=== PATIENT | male | born 1945 | race Two or more races ===

== ENCOUNTER 2016-08-05 12:35 | Inpatient (IN) | payer OTHER ==
[2016-08-05] VITALS (7 sets, daily range): BP systolic 73–129; BP diastolic 39–71
[~2016-08-05] VITALS: Ht 170.2 cm; Wt 72.6 kg
[2016-08-05] MEDS ORDERED: Ampicillin/Sulbactam Sod 3 GM in NS 110 ML IV SCH (12:45)
[2016-08-05] MEDS ORDERED: NS 1000ml 2,200 ML IVLG ONE (12:45)
[2016-08-05] MEDS ORDERED: Unasyn 3gm Inj ONE (12:53)
[2016-08-05 13:17] LABS: BASOPHILS % (AUTO) 0.6 % (0.0-2.0); LYMPHOCYTES % (AUTO) 10.8 % (20.0-45.0); MEAN CORPUSCULAR HEMOGLOBIN 29.3 PG (27.0-31.0); MEAN CORPUSCULAR VOLUME 89 FL (80-99); MEAN PLATELET VOLUME 7.1 FL (6.5-10.1); MONOCYTES % (AUTO) 8.6 % (1.0-10.0); PLATELET COUNT 207 K/UL (150-450); RED BLOOD COUNT 4.11 M/UL (4.70-6.10); RED CELL DISTRIBUTION WIDTH 13.1 % (11.6-14.8)
[2016-08-05 13:31] LABS: APPEARANCE,URINE CLEAR; INR 1.1 (0.9-1.1); KETONES,URINE 2+ (NEGATIVE); LEUKOCYTE ESTERASE ,URINE NEGATIVE (NEGATIVE); NITRITE,URINE NEGATIVE (NEGATIVE); PH,URINE 5 (4.5-8.0); PROTEIN,URINE 2+ (NEGATIVE); PROTHROMBIN TIME 11.4 SEC (9.30-11.50); UROBILINOGEN,URINE 1 MG/DL (0.0-1.0)
[2016-08-05 13:33] LABS: TROPONIN I < 0.30 ng/mL (<=0.30)
[2016-08-05 13:34] LABS: ALANINE AMINOTRANSFERASE 21 U/L (3-41); ALBUMIN/GLOBULIN RATIO 1.8 (1.0-2.7); ANION GAP 21 (5-15); ASPARTATE AMINO TRANSFERASE 48 U/L (5-40); CALCIUM 9.1 mg/dL (8.6-10.2); CARBON DIOXIDE 24 mEQ/L (20-30); CHLORIDE 100 mEQ/L (98-107); CREATININE 2.3 mg/dL (0.7-1.2); HEMOLYSIS 3; LIPASE 18 U/L (< 60); POTASSIUM 3.4 mEQ/L (3.4-4.9); SODIUM 145 mEQ/L (135-145); TOTAL PROTEIN 6.2 g/dL (6.6-8.7)
[2016-08-05 13:35] LABS: REFLEX LACTIC ACID YES OR NO YES
[2016-08-05] MEDS: metroNIDAZOLE 500mg 100 ML IV SCH ×2 (13:43→15:05)
[2016-08-05 13:44] LABS: CKMB 31.5 ng/mL (< 6.7)
[2016-08-05 13:47] LABS: BACTERIA,URINE FEW /HPF; GRANULAR CASTS,URINE 0-2 /LPF; HYALINE CASTS, URINE 0-2 /LPF; SQUAMOUS EPITHELIAL CELL,UR OCCASIONAL /LPF (NONE/OCC); WBC,URINE 0-2 /HPF (0 - 0)
[2016-08-05 14:07] LABS: ABG BASE EXCESS -1.2; ABG PCO2 38.5 mmHg (35.0-45.0)
[2016-08-05 14:08] LABS: ABG ALLEN TEST POSITIVE
--- NOTE | 2016-08-05 14:37 | Diagnostic Imaging Report ---
Indication: SOB Technique: One view of the chest Comparison: none Findings: There is atelectasis at the left lung base. Lungs and pleural spaces are otherwise clear. The heart size is upper limits of normal. Aorta is tortuous and ectatic. Impression: No acute process
[2016-08-05] MEDS ORDERED: NKM (15:04)
--- NOTE | 2016-08-05 15:48 | Emergency Room Report ---
History of Present Illness General Chief Complaint: Altered Level of Consciousness Source: Patient, EMS Present Illness HPI Patient is a 70-year-old male brought in by paramedics for altered level consciousness.The patient was brought in after being found lying in the street. The patient was noted to be hypotensive when paramedics arrived. The patient was started on IV fluids by paramedics He was noted to have adequate blood sugar . The patient markedly limited by patient's poor historian Allergies: Coded Allergies: No Known Allergies (Unverified , 08/05/16) Patient History Reviewed Nursing Documentation: PMH: Agreed, PSxH: Agreed Nursing Documentation-PMH Past Medical History Deferred: Pt Cognitively Impaired Past Medical History: Deferred Review of Systems All Other Systems: negative except mentioned in HPI Physical Exam Vital Signs Date Time Temp Pulse Resp B/P Pulse Ox O2 Delivery O2 Flow Rate FiO2 08/05/16 12:26 99.1 100 14 76/48 97 08/05/16 12:35 Room Air Sp02 EP Interpretation: normal General Appearance: moderate distress, Chronically Ill Eyes: bilateral eye PERRL ENT: dry mucus membranes Neck: limited range of motion Respiratory: lungs clear, normal breath sounds Cardiovascular #1: normal peripheral pulses, regular rate, rhythm, no edema Gastrointestinal: normal bowel sounds, non tender, no mass Musculoskeletal: back normal Neurologic: other - generalized weakness, lip smacking, waxy flexibility Medical Decision Making Diagnostic Impression: Primary Impression: Altered level of consciousness Additional Impression: Severe sepsis ER Course Patient is a 70-year-old male present for altered mental status. Differential diagnosis included but was not limited to ischemic stroke, subarachnoid hemorrhage, hypoglycemia, spinal cord injury, neurodegenerative disorder, urinary tract infection, hypoxemia.Because of complexity of patient's case laboratory testing and imaging studies were ordered. EKG interpreted by me showed normal sinus rhythm with septal Q waves prolonged QT interval and a left anterior fascicular block heart rate of 81.Patient was started on IV fluids with some improvement in his blood pressure. The patient was noted to have elevated lactic acid level consistent with severe sepsis. The patient was noted to have a CT of the head read by radiologist chest x-ray read by radiology showed no acute process. Patient was noted to have evidence of improvement with IV hydration. Laboratory testing showed elevated lactic acid level. Repeat lactate was improved. Dr. Manjit Gibbs was contacted for inpatient management Laboratory Tests Test 08/05/16 12:50 3/17/17 13:36 08/05/16 14:00 White Blood Count 9.0 K/UL (4.8-10.8) Red Blood Count 4.11 M/UL (4.70-6.10) L Hemoglobin 12.1 G/DL (14.2-18.0) L Hematocrit 36.5 % (42.0-52.0) L Mean Corpuscular Volume 89 FL (80-99) Mean Corpuscular Hemoglobin 29.3 PG (27.0-31.0) Mean Corpuscular Hemoglobin Concent 33.0 G/DL (32.0-36.0) Red Cell Distribution Width 13.1 % (11.6-14.8) Platelet Count 207 K/UL (150-450) Mean Platelet Volume 7.1 FL (6.5-10.1) Neutrophils (%) (Auto) 80.0 % (45.0-75.0) H Lymphocytes (%) (Auto) 10.8 % (20.0-45.0) L Monocytes (%) (Auto) 8.6 % (1.0-10.0) Eosinophils (%) (Auto) 0.0 % (0.0-3.0) Basophils (%) (Auto) 0.6 % (0.0-2.0) Prothrombin Time 11.4 SEC (9.30-11.50) Prothrombin Time INR 1.1 (0.9-1.1) PTT 23 SEC (23-33) Urine Color Yellow Urine Appearance Clear Urine pH 5 (4.5-8.0) Urine Specific [place] 1.025 (1.005-1.035) Urine Protein 2+ (NEGATIVE) H Urine Glucose (UA) Negative (NEGATIVE) Urine Ketones 2+ (NEGATIVE) H Urine Occult Blood 2+ (NEGATIVE) H Urine Nitrite Negative (NEGATIVE) Urine Bilirubin Negative (NEGATIVE) Urine Urobilinogen 1 MG/DL (0.0-1.0) H Urine Leukocyte Esterase Negative (NEGATIVE) Urine RBC 2-4 /HPF (0 - 0) H Urine WBC 0-2 /HPF (0 - 0) Urine Squamous Epithelial Cells Occasional /LPF Urine Bacteria Few /HPF (NONE) Urine Hyaline Casts 0-2 /LPF (NONE) H Urine Granular Casts 0-2 /LPF (NONE) H Sodium Level 145 mEQ/L (135-145) Potassium Level 3.4 mEQ/L (3.4-4.9) Chloride Level 100 mEQ/L (98-107) Carbon Dioxide Level 24 mEQ/L (20-30) Anion Gap 21 (5-15) H Blood Urea Nitrogen 56 mg/dL (7-23) H Creatinine 2.3 mg/dL (0.7-1.2) H Estimate Glomerular Filtration Rate mL/min (>60) Glucose Level 214 mg/dL (74-106) H Lactic Acid Level 3.10 mmol/L (0.66-2.22) H 2.40 mmol/L (0.66-2.22) H Calcium Level 9.1 mg/dL (8.6-10.2) Total Bilirubin 0.7 mg/dL (0.0-1.2) Aspartate Amino Transferase (AST) 48 U/L (5-40) H Alanine Aminotransferase (ALT) 21 U/L (3-41) Alkaline Phosphatase 53 U/L (40-129) Total Creatine Kinase 2627 U/L (38-174) H Creatine Kinase MB 31.5 ng/mL (< 6.7) H Creatine Kinase MB Relative Index 1.1 Troponin I < 0.30 ng/mL (<=0.30) Total Protein 6.2 g/dL (6.6-8.7) L Albumin 4.0 g/dL (3.5-5.2) Globulin 2.2 g/dL Albumin/Globulin Ratio 1.8 (1.0-2.7) Lipase 18 U/L (< 60) Arterial Blood pH 7.400 (7.350-7.450) Arterial Blood Partial Pressure CO2 38.5 mmHg (35.0-45.0) Arterial Blood Partial Pressure O2 75.1 mmHg (75.0-100.0) Arterial Blood HCO3 23.3 mmol/L (22.0-26.0) Arterial Blood Oxygen Saturation 94.7 % (92.0-98.0) Arterial Blood Base Excess -1.2 Pascual Test Positive EKG Diagnostic Results Rate: normal - 81 Rhythm: NSR Rhythm Strip Diag. Results EP Interpretation: yes Rhythm: NSR, no PVC's, no ectopy Chest X-Ray Diagnostic Results EP Interpretation: Yes Findings: no consolidation, no effusion, no pneumothorax, no acute cardiopulmonary disease Number of Views: 1 Last Vital Signs Date Time Temp Pulse Resp B/P Pulse Ox O2 Delivery O2 Flow Rate FiO2 08/05/16 14:09 67 16 107/53 97 Room Air 08/05/16 12:35 98.2 Status: unchanged Disposition: ADMITTED INPATIENT Condition: Critical Referrals: NOT CHOSEN IPA/,REFERRING (PCP) Christopher Fernandez Aug 05, 2016 15:48
--- NOTE | 2016-08-05 16:22 | Infectious Diseases Prog Note ---
Assessment/Plan Problems: (1) Severe sepsis Assessment & Plan: will start cefepime and clindamycin empirically, send blood culture (2) Altered level of consciousness Assessment & Plan: rule out [employer] pathology, recommend MRI images of the brain and neurology consult (3) LAURA (acute kidney injury) Assessment & Plan: due to hypotension and dehydration, continue IVF , monitor UOP (4) Dehydration Assessment & Plan: continue IVF for hydration Subjective Allergies: Coded Allergies: No Known Allergies (Unverified , 08/05/16) Objective Vital Signs Last 24 Hour Vital Signs Date Time Temp Pulse Resp B/P Pulse Ox O2 Delivery O2 Flow Rate FiO2 08/05/16 14:09 67 16 107/53 97 Room Air 08/05/16 13:00 85 16 117/55 99 Room Air 08/05/16 12:45 93 17 109/67 98 Room Air 08/05/16 12:45 93 17 Room Air 08/05/16 12:35 98.2 100 19 73/39 99 Room Air 08/05/16 12:26 99.1 100 14 76/48 97 Height (Feet): 5 Height (Inches): 7.00 Weight (Pounds): 160 Laboratory Tests Test 08/05/16 12:50 08/05/16 13:36 08/05/16 14:00 White Blood Count 9.0 K/UL (4.8-10.8) Red Blood Count 4.11 M/UL (4.70-6.10) L Hemoglobin 12.1 G/DL (14.2-18.0) L Hematocrit 36.5 % (42.0-52.0) L Mean Corpuscular Volume 89 FL (80-99) Mean Corpuscular Hemoglobin 29.3 PG (27.0-31.0) Mean Corpuscular Hemoglobin Concent 33.0 G/DL (32.0-36.0) Red Cell Distribution Width 13.1 % (11.6-14.8) Platelet Count 207 K/UL (150-450) Mean Platelet Volume 7.1 FL (6.5-10.1) Neutrophils (%) (Auto) 80.0 % (45.0-75.0) H Lymphocytes (%) (Auto) 10.8 % (20.0-45.0) L Monocytes (%) (Auto) 8.6 % (1.0-10.0) Eosinophils (%) (Auto) 0.0 % (0.0-3.0) Basophils (%) (Auto) 0.6 % (0.0-2.0) Prothrombin Time 11.4 SEC (9.30-11.50) Prothromb Time International Ratio 1.1 (0.9-1.1) Activated Partial Thromboplast Time 23 SEC (23-33) Urine Color Yellow Urine Appearance Clear Urine pH 5 (4.5-8.0) Urine Specific [place] 1.025 (1.005-1.035) Urine Protein 2+ (NEGATIVE) H Urine Glucose (UA) Negative (NEGATIVE) Urine Ketones 2+ (NEGATIVE) H Urine Occult Blood 2+ (NEGATIVE) H Urine Nitrite Negative (NEGATIVE) Urine Bilirubin Negative (NEGATIVE) Urine Urobilinogen 1 MG/DL (0.0-1.0) H Urine Leukocyte Esterase Negative (NEGATIVE) Urine RBC 2-4 /HPF (0 - 0) H Urine WBC 0-2 /HPF (0 - 0) Urine Squamous Epithelial Cells Occasional /LPF Urine Bacteria Few /HPF (NONE) Urine Hyaline Casts 0-2 /LPF (NONE) H Urine Granular Casts 0-2 /LPF (NONE) H Sodium Level 145 mEQ/L (135-145) Potassium Level 3.4 mEQ/L (3.4-4.9) Chloride Level 100 mEQ/L (98-107) Carbon Dioxide Level 24 mEQ/L (20-30) Anion Gap 21 (5-15) H Blood Urea Nitrogen 56 mg/dL (7-23) H Creatinine 2.3 mg/dL (0.7-1.2) H Estimat Glomerular Filtration Rate mL/min (>60) Glucose Level 214 mg/dL (74-106) H Lactic Acid Level 3.10 mmol/L (0.66-2.22) H 2.40 mmol/L (0.66-2.22) H Calcium Level 9.1 mg/dL (8.6-10.2) Total Bilirubin 0.7 mg/dL (0.0-1.2) Aspartate Amino Transf (AST/SGOT) 48 U/L (5-40) H Alanine Aminotransferase (ALT/SGPT) 21 U/L (3-41) Alkaline Phosphatase 53 U/L (40-129) Total Creatine Kinase 2627 U/L (38-174) H Creatine Kinase MB 31.5 ng/mL (< 6.7) H Creatine Kinase MB Relative Index 1.1 Troponin I < 0.30 ng/mL (<=0.30) Total Protein 6.2 g/dL (6.6-8.7) L Albumin 4.0 g/dL (3.5-5.2) Globulin 2.2 g/dL Albumin/Globulin Ratio 1.8 (1.0-2.7) Lipase 18 U/L (< 60) Arterial Blood pH 7.400 (7.350-7.450) Arterial Blood Partial Pressure CO2 38.5 mmHg (35.0-45.0) Arterial Blood Partial Pressure O2 75.1 mmHg (75.0-100.0) Arterial Blood HCO3 23.3 mmol/L (22.0-26.0) Arterial Blood Oxygen Saturation 94.7 % (92.0-98.0) Arterial Blood Base Excess -1.2 Pascual Test Positive Current Medications Medications (Trade) Dose Ordered Sig/Gold Route PRN Reason Start Time Stop Time Status Last Admin Dose Admin Ampicillin Sodium/ Sulbactam Sodium 3 gm/Sodium Chloride 110 ml @ 220 mls/hr Q6H IV 08/05/16 12:45 08/06/16 12:44 08/05/16 12:57 Metronidazole (Flagyl) 100 ml @ 100 mls/hr Q6H IV 08/05/16 12:45 08/06/16 12:44 08/05/16 13:43 Edelmira James M.D. Aug 05, 2016 16:22
[2016-08-05] MEDS ORDERED: Clindamycin 600mg 50 ML IV SCH (17:00)
--- NOTE | 2016-08-05 18:42 | Cardiac Electrophysiology PN ---
Subjective Subjective [id number] Objective Last 24 Hour Vital Signs Date Time Temp Pulse Resp B/P Pulse Ox O2 Delivery O2 Flow Rate FiO2 08/05/16 17:54 97.7 64 20 114/70 97 Room Air 08/05/16 17:16 98.2 66 15 129/71 98 Room Air 08/05/16 16:42 98.2 66 15 129/71 98 Room Air 08/05/16 14:09 67 16 107/53 97 Room Air 08/05/16 13:00 85 16 117/55 99 Room Air 08/05/16 12:45 93 17 109/67 98 Room Air 08/05/16 12:45 93 17 Room Air 08/05/16 12:35 98.2 100 19 73/39 99 Room Air 08/05/16 12:26 99.1 100 14 76/48 97 Laboratory Tests Test 08/05/16 12:50 08/05/16 13:36 08/05/16 14:00 White Blood Count 9.0 K/UL (4.8-10.8) Red Blood Count 4.11 M/UL (4.70-6.10) L Hemoglobin 12.1 G/DL (14.2-18.0) L Hematocrit 36.5 % (42.0-52.0) L Mean Corpuscular Volume 89 FL (80-99) Mean Corpuscular Hemoglobin 29.3 PG (27.0-31.0) Mean Corpuscular Hemoglobin Concent 33.0 G/DL (32.0-36.0) Red Cell Distribution Width 13.1 % (11.6-14.8) Platelet Count 207 K/UL (150-450) Mean Platelet Volume 7.1 FL (6.5-10.1) Neutrophils (%) (Auto) 80.0 % (45.0-75.0) H Lymphocytes (%) (Auto) 10.8 % (20.0-45.0) L Monocytes (%) (Auto) 8.6 % (1.0-10.0) Eosinophils (%) (Auto) 0.0 % (0.0-3.0) Basophils (%) (Auto) 0.6 % (0.0-2.0) Prothrombin Time 11.4 SEC (9.30-11.50) Prothromb Time International Ratio 1.1 (0.9-1.1) Activated Partial Thromboplast Time 23 SEC (23-33) Urine Color Yellow Urine Appearance Clear Urine pH 5 (4.5-8.0) Urine Specific [place] 1.025 (1.005-1.035) Urine Protein 2+ (NEGATIVE) H Urine Glucose (UA) Negative (NEGATIVE) Urine Ketones 2+ (NEGATIVE) H Urine Occult Blood 2+ (NEGATIVE) H Urine Nitrite Negative (NEGATIVE) Urine Bilirubin Negative (NEGATIVE) Urine Urobilinogen 1 MG/DL (0.0-1.0) H Urine Leukocyte Esterase Negative (NEGATIVE) Urine RBC 2-4 /HPF (0 - 0) H Urine WBC 0-2 /HPF (0 - 0) Urine Squamous Epithelial Cells Occasional /LPF Urine Bacteria Few /HPF (NONE) Urine Hyaline Casts 0-2 /LPF (NONE) H Urine Granular Casts 0-2 /LPF (NONE) H Sodium Level 145 mEQ/L (135-145) Potassium Level 3.4 mEQ/L (3.4-4.9) Chloride Level 100 mEQ/L (98-107) Carbon Dioxide Level 24 mEQ/L (20-30) Anion Gap 21 (5-15) H Blood Urea Nitrogen 56 mg/dL (7-23) H Creatinine 2.3 mg/dL (0.7-1.2) H Estimat Glomerular Filtration Rate mL/min (>60) Glucose Level 214 mg/dL (74-106) H Lactic Acid Level 3.10 mmol/L (0.66-2.22) H 2.40 mmol/L (0.66-2.22) H Calcium Level 9.1 mg/dL (8.6-10.2) Total Bilirubin 0.7 mg/dL (0.0-1.2) Aspartate Amino Transf (AST/SGOT) 48 U/L (5-40) H Alanine Aminotransferase (ALT/SGPT) 21 U/L (3-41) Alkaline Phosphatase 53 U/L (40-129) Total Creatine Kinase 2627 U/L (38-174) H Creatine Kinase MB 31.5 ng/mL (< 6.7) H Creatine Kinase MB Relative Index 1.1 Troponin I < 0.30 ng/mL (<=0.30) Total Protein 6.2 g/dL (6.6-8.7) L Albumin 4.0 g/dL (3.5-5.2) Globulin 2.2 g/dL Albumin/Globulin Ratio 1.8 (1.0-2.7) Lipase 18 U/L (< 60) Arterial Blood pH 7.400 (7.350-7.450) Arterial Blood Partial Pressure CO2 38.5 mmHg (35.0-45.0) Arterial Blood Partial Pressure O2 75.1 mmHg (75.0-100.0) Arterial Blood HCO3 23.3 mmol/L (22.0-26.0) Arterial Blood Oxygen Saturation 94.7 % (92.0-98.0) Arterial Blood Base Excess -1.2 Pascual Test Positive BRIE DEJESUS Aug 05, 2016 18:42
[2016-08-05] MEDS ORDERED: Cefepime HCl 1 GM in D5W 55 ML IVPB SCH ×2 (19:00→21:00)
[2016-08-05] MEDS ORDERED: D5 1/2NS 1,000 ML IV SCH (21:48)
[2016-08-05] MEDS: D5NS 1,000 ML IV SCH (22:08)
[2016-08-05] MEDS: Heparin 5000 units/ml inj SUBQ SCH (22:34)
[2016-08-06] VITALS: BP 99/55
--- NOTE | 2016-08-06 00:28 | Consultation ---
DATE OF CONSULTATION: 08/05/2016 CARDIOLOGY CONSULTATION: CONSULTING PHYSICIAN: Beau Guzmán M.D. REFERRING PHYSICIAN: Manjit Gibbs M.D. REASON FOR CONSULTATION: Hypotension. HISTORY OF PRESENT ILLNESS: The patient is a 70-year-old, gentleman with history of dementia, was brought to the emergency room for management of altered level of consciousness after was being found lying in the street. The patient was found to be hypotensive with a pressure of 76/48. The patient was started on IV fluids and was admitted to telemetry floor. Cardiology consultation was obtained for further evaluation. REVIEW OF SYSTEMS: Cannot be obtained. He is quite altered at this time. PAST MEDICAL HISTORY: Not clear at this time. SOCIAL HISTORY: The [place] [address] No further information is available. PHYSICAL EXAMINATION: VITAL SIGNS: Blood pressure 114/70, pulse 64, respiratory 22, and temperature 97.7 degrees Fahrenheit. HEAD AND NECK: No JVD. LUNGS: Clear. CARDIOVASCULAR: Shows regular S1 and S2 with no gallop or murmur. ABDOMEN: Soft. EXTREMITIES: No pitting edema. DIAGNOSTIC AND LABORATORY DATA: His EKG shows sinus rhythm with first-degree AV block, OR 264 milliseconds, incomplete right bundle-branch block, and left anterior fascicular block. White count 9.1, hematocrit 36.5, and platelets 207,000. Sodium 141, potassium 3.4, BUN , creatinine 2.3, and glucose of 214. Lactic acid level 3.1. CK is 2627 and MB is 31. Troponin is negative. ASSESSMENT AND PLAN: 1. Hypotension. This is likely secondary to dehydration and sepsis. The patient will get IV fluids and IV antibiotics. 2. Rhabdomyolysis with CK of more than 2600, especially with renal failure. The patient is on IV fluids. 3. Renal failure secondary to azotemia and rhabdomyolysis. Again, IV fluid per Dr. Gibbs. We will also get an echocardiogram to evaluate ejection fraction and wall motion abnormality. 4. 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 We will keep the patient on telemetry for close observation. Thank very much, Dr. Gibbs, for allowing me to participate in the care of this patient. Please do not hesitate to contact me for any questions regarding my evaluation. Beau Guzmán M.D. DR: DARRYL JOB#: [id number] CC:
[2016-08-06 04:00] VITALS: BP 124/53
[2016-08-06 06:16] LABS: BASOPHILS % (AUTO) 0.7 % (0.0-2.0); EOSINOPHILS % (AUTO) 1.4 % (0.0-3.0); LYMPHOCYTES % (AUTO) 22.5 % (20.0-45.0); MEAN CORPUSCULAR HEMOGLOBIN 30.6 PG (27.0-31.0); MEAN CORPUSCULAR HGB CONC 34.2 G/DL (32.0-36.0); MEAN CORPUSCULAR VOLUME 90 FL (80-99); MEAN PLATELET VOLUME 6.3 FL (6.5-10.1); MONOCYTES % (AUTO) 11.4 % (1.0-10.0); NEUTROPHILS % (AUTO) 63.9 % (45.0-75.0); PLATELET COUNT 180 K/UL (150-450); RED BLOOD COUNT 3.71 M/UL (4.70-6.10); RED CELL DISTRIBUTION WIDTH 13.2 % (11.6-14.8); WHITE BLOOD COUNT 5.9 K/UL (4.8-10.8)
[2016-08-06 06:56] LABS: TROPONIN I < 0.30 ng/mL (<=0.30)
[2016-08-06 06:57] LABS: ANION GAP 15 (5-15); CALCIUM 8.5 mg/dL (8.6-10.2); CARBON DIOXIDE 26 mEQ/L (20-30); CHLORIDE 106 mEQ/L (98-107); CREATININE 1.1 mg/dL (0.7-1.2); HEMOLYSIS 5; POTASSIUM 3.5 mEQ/L (3.4-4.9); SODIUM 147 mEQ/L (135-145)
[2016-08-06 08:00] VITALS: BP 110/64
[2016-08-06] MEDS: Clindamycin 600mg 50 ML IV SCH ×2 (09:25→16:53)
[2016-08-06] MEDS: Heparin 5000 units/ml inj SUBQ SCH ×2 (09:27→22:25)
[2016-08-06 12:00] VITALS: BP 108/53
[2016-08-06] MEDS: D5NS 1,000 ML IV SCH (13:29)
--- NOTE | 2016-08-06 14:49 | Cardiac Electrophysiology PN ---
Assessment/Plan Assessment/Plan 1. Hypotension. Due to dehydration and sepsis.Better on IV fluids and IV antibiotics. 2. Rhabdomyolysis with CK of more than 2600, especially with renal failure. The patient is on IV fluids. 3. Renal failure secondary to azotemia and rhabdomyolysis. IV fluid per Dr. Gibbs. Echocardiogram 4. 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 We will keep the patient on telemetry for close observation. DIMPLE RN Subjective Subjective Feeling better. Having lunch. No events overnight. Objective Last 24 Hour Vital Signs Date Time Temp Pulse Resp B/P Pulse Ox O2 Delivery O2 Flow Rate FiO2 08/06/16 12:00 97.5 56 20 108/53 99 Room Air 08/06/16 08:00 97.5 63 18 110/64 98 Room Air 08/06/16 08:00 97.5 63 18 110/64 98 Room Air 08/06/16 08:00 71 08/06/16 07:10 80 16 Room Air 08/06/16 04:00 97.4 67 23 124/53 92 Nasal Cannula 5.0 08/06/16 04:00 81 08/06/16 00:00 97.9 82 20 99/55 Room Air 08/06/16 00:00 76 08/05/16 20:50 98.0 75 20 103/44 98 Room Air 08/05/16 20:00 77 08/05/16 17:54 97.7 64 20 114/70 97 Room Air 08/05/16 17:45 61 08/05/16 17:16 98.2 66 15 129/71 98 Room Air 08/05/16 16:42 98.2 66 15 129/71 98 Room Air Intake and Output 08/05/16 08/06/16 19:00 07:00 Intake Total 210 ml 595 ml Output Total 200 ml 1500 ml Balance 10 ml -905 ml Intake IV Total 210 ml 595 ml Output Urine Total 200 ml 1500 ml Laboratory Tests Test 08/06/16 05:20 White Blood Count 5.9 K/UL (4.8-10.8) Red Blood Count 3.71 M/UL (4.70-6.10) L Hemoglobin 11.3 G/DL (14.2-18.0) L Hematocrit 33.2 % (42.0-52.0) L Mean Corpuscular Volume 90 FL (80-99) Mean Corpuscular Hemoglobin 30.6 PG (27.0-31.0) Mean Corpuscular Hemoglobin Concent 34.2 G/DL (32.0-36.0) Red Cell Distribution Width 13.2 % (11.6-14.8) Platelet Count 180 K/UL (150-450) Mean Platelet Volume 6.3 FL (6.5-10.1) L Neutrophils (%) (Auto) 63.9 % (45.0-75.0) Lymphocytes (%) (Auto) 22.5 % (20.0-45.0) Monocytes (%) (Auto) 11.4 % (1.0-10.0) H Eosinophils (%) (Auto) 1.4 % (0.0-3.0) Basophils (%) (Auto) 0.7 % (0.0-2.0) Sodium Level 147 mEQ/L (135-145) H Potassium Level 3.5 mEQ/L (3.4-4.9) Chloride Level 106 mEQ/L (98-107) Carbon Dioxide Level 26 mEQ/L (20-30) Anion Gap 15 (5-15) Blood Urea Nitrogen 34 mg/dL (7-23) H Creatinine 1.1 mg/dL (0.7-1.2) # Estimat Glomerular Filtration Rate mL/min (>60) Glucose Level 110 mg/dL (74-106) #H Calcium Level 8.5 mg/dL (8.6-10.2) L Troponin I < 0.30 ng/mL (<=0.30) C-Reactive Protein, Quantitative 0.8 mg/dL (< 0.5) H Pro-B-Type Natriuretic Peptide 599 pg/mL (0-125) H Thyroid Stimulating Hormone (TSH) 1.100 uIU/mL (0.300-4.500) Free Thyroxine 1.14 ng/dL (0.86-1.85) Objective HEAD AND NECK: No JVD. LUNGS: Clear. CARDIOVASCULAR: Shows regular S1 and S2 with no gallop or murmur. ABDOMEN: Soft. EXTREMITIES: No pitting edema. BRIE DEJESUS Aug 06, 2016 14:49
[2016-08-06] MEDS ORDERED: AMIODARONE HCL400 M1 ORAL (15:19)
[2016-08-06] MEDS ORDERED: METOPROLOL TART25 MG ORAL (15:19)
[2016-08-06] MEDS ORDERED: ARICEPT5 MG ORAL (15:19)
[2016-08-06] MEDS ORDERED: AMLODIPINE BESYL5 MG ORAL (15:19)
[2016-08-06] MEDS ORDERED: LISINOPRIL5 MG ORAL (15:19)
[2016-08-06] MEDS ORDERED: VITAMIN D400 INTLU ORAL (15:19)
[2016-08-06] MEDS ORDERED: POTASSIUM99 M3 PO (15:19)
[2016-08-06 16:33] VITALS: BP 102/61
[2016-08-06] MEDS: Cefepime 1gm/D5W 55ml IVPB SCH ×2 (16:49)
[2016-08-06 20:00] VITALS: BP 95/54
--- NOTE | 2016-08-06 20:32 | History and Physical ---
History of Present Illness General Date patient seen: Aug 06, 2016 Reason for Hospitalization: Altered Level of Consciousness Present Illness HPI 70 y/o male with unknown PMH and apparent dementia was BIB paramedics for ALOC after being found lying in the street. He was found to be hypotensive which improved with bolus with IVF. The patient is otherwise unable to give further history. Patient was noted to have LARUA and rhabdo as well as abnormal ECG changes and was admitted to [facility] for further management. Allergies: Coded Allergies: No Known Allergies (Unverified , 08/05/16) Medication History Scheduled Amiodarone Hcl* (Amiodarone Hcl*), 200 MG ORAL DAILY, (Reported) Amlodipine Besylate* (Amlodipine Besylate*), 5 MG ORAL DAILY, (Reported) Donepezil Hcl* (Aricept*), 5 MG ORAL DAILY, (Reported) Lisinopril (Lisinopril*), 5 MG ORAL DAILY, (Reported) Metoprolol Tartrate* (Metoprolol Tartrate*), 25 MG ORAL BID, (Reported) No Known Medications* (NKM - No Known Medications*), 0 ., (Reported) Potassium Gluconate (Potassium), 8 MEQ PO DAILY, (Reported) Vitamin D (Vitamin D3), 1,000 UNITS ORAL DAILY, (Reported) Patient History Limited by: medical condition History Provided By: Medical Record Healthcare decision maker Resuscitation status Full Code Advanced Directive on File No Review of Systems ROS Narrative limited due to patient's mental status Physical Exam General Appearance: WD/WN, no apparent distress, alert HEENT: normocephalic, atraumatic Neck: supple Respiratory/Chest: lungs clear Cardiovascular/Chest: normal rate, regular rhythm Abdomen: non tender, soft Extremities: no edema Neurologic: alert, responsive Last 24 Hour Vital Signs Date Time Temp Pulse Resp B/P Pulse Ox O2 Delivery O2 Flow Rate FiO2 08/06/16 16:33 96.9 79 20 102/61 96 Room Air 08/06/16 16:00 64 08/06/16 12:00 97.5 56 20 108/53 99 Room Air 08/06/16 08:00 97.5 63 18 110/64 98 Room Air 08/06/16 08:00 97.5 63 18 110/64 98 Room Air 08/06/16 08:00 71 08/06/16 07:10 80 16 Room Air 08/06/16 04:00 97.4 67 23 124/53 92 Nasal Cannula 5.0 08/06/16 04:00 81 08/06/16 00:00 97.9 82 20 99/55 Room Air 08/06/16 00:00 76 08/05/16 20:50 98.0 75 20 103/44 98 Room Air Intake and Output 08/05/16 08/06/16 19:00 07:00 Intake Total 210 ml 595 ml Output Total 200 ml 1500 ml Balance 10 ml -905 ml IV Total 210 ml 595 ml Output Urine Total 200 ml 1500 ml Laboratory Tests Test 08/06/16 05:20 White Blood Count 5.9 K/UL (4.8-10.8) Red Blood Count 3.71 M/UL (4.70-6.10) L Hemoglobin 11.3 G/DL (14.2-18.0) L Hematocrit 33.2 % (42.0-52.0) L Mean Corpuscular Volume 90 FL (80-99) Mean Corpuscular Hemoglobin 30.6 PG (27.0-31.0) Mean Corpuscular Hemoglobin Concent 34.2 G/DL (32.0-36.0) Red Cell Distribution Width 13.2 % (11.6-14.8) Platelet Count 180 K/UL (150-450) Mean Platelet Volume 6.3 FL (6.5-10.1) L Neutrophils (%) (Auto) 63.9 % (45.0-75.0) Lymphocytes (%) (Auto) 22.5 % (20.0-45.0) Monocytes (%) (Auto) 11.4 % (1.0-10.0) H Eosinophils (%) (Auto) 1.4 % (0.0-3.0) Basophils (%) (Auto) 0.7 % (0.0-2.0) Sodium Level 147 mEQ/L (135-145) H Potassium Level 3.5 mEQ/L (3.4-4.9) Chloride Level 106 mEQ/L (98-107) Carbon Dioxide Level 26 mEQ/L (20-30) Anion Gap 15 (5-15) Blood Urea Nitrogen 34 mg/dL (7-23) H Creatinine 1.1 mg/dL (0.7-1.2) # Estimat Glomerular Filtration Rate mL/min (>60) Glucose Level 110 mg/dL (74-106) #H Calcium Level 8.5 mg/dL (8.6-10.2) L Troponin I < 0.30 ng/mL (<=0.30) C-Reactive Protein, Quantitative 0.8 mg/dL (< 0.5) H Pro-B-Type Natriuretic Peptide 599 pg/mL (0-125) H Thyroid Stimulating Hormone (TSH) 1.100 uIU/mL (0.300-4.500) Free Thyroxine 1.14 ng/dL (0.86-1.85) Height (Feet): 5 Height (Inches): 7.00 Weight (Pounds): 160 Medications Current Medications Medications (Trade) Dose Ordered Sig/Gold Route PRN Reason Start Time Stop Time Status Last Admin Dose Admin Acetaminophen (Tylenol) 650 mg Q4H PRN ORAL Mild Pain (Pain Scale 1-3) 08/05/16 21:00 09/04/16 20:59 Cefepime HCl/ Dextrose (Maxipime/D5W) 55 ml @ 110 mls/hr Q12HR IVPB 08/06/16 16:00 08/13/16 15:59 08/06/16 16:49 Clindamycin HCl/ Dextrose 50 ml @ 100 mls/hr Q8H IV 08/06/16 09:00 08/13/16 08:59 08/06/16 16:53 Dextrose STAT PRN IV Hypoglycemia 08/05/16 21:00 09/04/16 20:59 Dextrose/Sodium Chloride 1,000 ml @ 60 mls/hr [id number] IV 08/05/16 21:30 09/04/16 21:29 08/06/16 13:29 Heparin Sodium (Porcine) (Heparin 5000 units/ml) 5,000 units EVERY 12 HOURS SUBQ 08/05/16 21:00 09/04/16 20:59 08/06/16 09:27 Ondansetron HCl (Zofran) 4 mg Q6H PRN IVP Nausea & Vomiting 08/05/16 21:00 09/04/16 20:59 Assessment/Plan Problem List: (1) Dehydration ICD Codes: E86.0 - Dehydration SNOMED: 40394025 (2) LAURA (acute kidney injury) ICD Codes: N17.9 - Acute kidney failure, unspecified SNOMED: 29707407 (3) Rhabdomyolysis ICD Codes: M62.82 - Rhabdomyolysis SNOMED: 547942918 (4) Altered level of consciousness ICD Codes: R40.4 - Transient alteration of awareness SNOMED: 7701169 (5) Severe sepsis ICD Codes: A41.9 - Sepsis, unspecified organism; R65.20 - Severe sepsis without septic shock SNOMED: 16608905 Assessment/Plan Dr. Farrell consulted for cardio, Dr. Gao for pulm and Dr. Lechuga/Erika for ID. Start IVF. MOnitor labs. MOnitor UOP. DVT ppx. D/w Dr. Gibbs. CLEMENTINE ROPER Aug 06, 2016 20:32
--- NOTE | 2016-08-06 20:48 | Consultation ---
DATE OF CONSULTATION: PULMONARY CONSULTATION HISTORY OF PRESENT ILLNESS: This is a 69-year-old male who has a history of dementia. He was brought to the hospital after being found to be unresponsive. He was also hypotensive. Overnight, the patient has been seen and evaluated by Cardiology. His blood pressure has significantly improved, saturating 99% on room air. There have been no reports of any respiratory issues and x-ray of the chest shows atelectasis at lung base. His white count is normal. PAST HISTORY: None known except for cognitive impairments. SOCIAL HISTORY: The patient apparently is a transient and lives on the street. . PHYSICAL EXAMINATION: GENERAL: The patient is an older male. HEENT: Unremarkable. CHEST: Clear breath sounds bilaterally. ABDOMEN: Soft. EXTREMITIES: There is edema. LABORATORY AND DIAGNOSTIC DATA: Lab testing is unremarkable. Lactate 3.1. Creatinine 2.3. IMPRESSION: 1. Renal failure. 2. Hypotension. 3. Dehydration. 4. Rhabdomyolysis. 5. Left lung atelectasis. DISCUSSION: Continue medications, intravenous fluids, hydration, and respiratory status stable. We will continue to follow. Agree with the use of empiric antibiotics. Thank you. Steve Gao M.D. DR: CATRACHITA JOB#: [id number] CC:
[2016-08-06] MEDS ORDERED: Cefepime HCl 1 GM in D5W 55 ML IVPB SCH (21:00)
--- NOTE | 2016-08-06 22:08 | Consultation ---
DATE OF CONSULTATION: INFECTIOUS DISEASE CONSULTATION CONSULTING PHYSICIAN: Edelmira James M.D. REQUESTING PHYSICIAN: Manjit Gibbs M.D. REASON FOR CONSULTATION: Sepsis and hypotension. Recommendation for antibiotics treatment. HISTORY OF PRESENT ILLNESS: Mr. Garret Barrios is a 70-year-old male with cognition impairment, was brought in to the [facility] for altered mental status after he was found down on the [address]. The patient was found to be hypotensive when the paramedics arrived, and he was given fluids. His blood glucose was normal and he was brought into the emergency room, where he was found to be febrile with temperature of 99.1 degrees. His white count of 9000. The patient was admitted to the hospital for management of sepsis and hypotension, and was consulted by the primary provider for antibiotics recommendation. REVIEW OF SYSTEMS: Unable to obtain. The patient is poor historian. PAST MEDICAL HISTORY: Unobtained. He is cognitively impaired. ALLERGIES: He has no allergy as per the record. SOCIAL HISTORY: Unable to obtain. FAMILY HISTORY: Unable to obtain. MEDICATIONS: He received Unasyn in the emergency room. For the list of his medications, please refer to MAR. PHYSICAL EXAMINATION: VITAL SIGNS: Vital signs temperature is a 98.2 degrees, pulse 66, respirations 15, blood pressure 129/71, and saturation 98% on room air. GENERAL: Elderly male, up in bed, eating lunch. Awake, alert, not in distress. HEENT: Normocephalic and atraumatic. Moist oral mucosa. No exudate. NECK: Supple. No lymphadenopathy. CARDIOVASCULAR: Regular rate and rhythm. No murmur. LUNGS: Clear bilaterally. No wheezing or rhonchi. ABDOMEN: Soft, nontender, and nondistended. Normal bowel sounds. No organomegaly. EXTREMITIES: No edema or cyanosis. LABORATORY AND DIAGNOSTIC DATA: His white count was 9000, hemoglobin 12.1, and platelet count 207,000. BUN 34, and creatinine 1.1. Urine analysis was negative for leukocyte esterase and a few bacteria. Imaging, chest x-ray showed no acute process. ASSESSMENT AND PLAN: 1. Severe sepsis with hypotension. We will start cefepime and clindamycin empirically and send blood culture. 2. Acute renal failure due to hypotension and dehydration. Continue intravenous fluids. Avoid nephrotoxic medicines. 3. Dehydration, continue intravenous fluid for hydration. Encourage fluid intake. 4. Altered level of consciousness. Due to the above rule out central nervous system pathology recommend MRI brain image if not improved and Neurology consultation. Edelmira James M.D. DR: Rachael JOB#: [id number] CC:
[2016-08-07] VITALS: BP 118/68
[2016-08-07] MEDS: Clindamycin 600mg 50 ML IV SCH ×2 (01:47→09:19)
[2016-08-07 04:00] VITALS: BP 113/63
[2016-08-07 05:58] LABS: BASOPHILS % (AUTO) 1.5 % (0.0-2.0); EOSINOPHILS % (AUTO) 3.9 % (0.0-3.0); MEAN CORPUSCULAR HEMOGLOBIN 30.3 PG (27.0-31.0); MEAN CORPUSCULAR HGB CONC 33.8 G/DL (32.0-36.0); MEAN CORPUSCULAR VOLUME 90 FL (80-99); MEAN PLATELET VOLUME 7.1 FL (6.5-10.1); MONOCYTES % (AUTO) 12.2 % (1.0-10.0); NEUTROPHILS % (AUTO) 54.4 % (45.0-75.0); PLATELET COUNT 162 K/UL (150-450); RED BLOOD COUNT 3.64 M/UL (4.70-6.10); RED CELL DISTRIBUTION WIDTH 13.5 % (11.6-14.8); WHITE BLOOD COUNT 4.6 K/UL (4.8-10.8)
[2016-08-07 06:13] LABS: ANION GAP 12 (5-15); CALCIUM 8.1 mg/dL (8.6-10.2); CARBON DIOXIDE 28 mEQ/L (20-30); CHLORIDE 108 mEQ/L (98-107); CREATININE 0.8 mg/dL (0.7-1.2); HEMOLYSIS 4; POTASSIUM 3.1 mEQ/L (3.4-4.9); SODIUM 148 mEQ/L (135-145)
[2016-08-07] MEDS: D5NS 1,000 ML IV SCH ×2 (06:50→08:00)
[2016-08-07 08:00] VITALS: BP 100/59
[2016-08-07] MEDS: Cefepime 1gm/D5W 55ml IVPB SCH ×2 (09:19)
[2016-08-07] MEDS: Heparin 5000 units/ml inj SUBQ SCH ×2 (09:22→21:14)
[2016-08-07 12:00] VITALS: BP 120/78
[2016-08-07 16:00] VITALS: BP 124/74
[2016-08-07] MEDS ORDERED: D5 1/2NS w/KCl 20mEq 1,000 ML IV SCH ×2 (19:30→23:30)
[2016-08-07 20:00] VITALS: BP 122/72
--- NOTE | 2016-08-07 20:22 | Nephrology Progress Note ---
Assessment/Plan Problem List: (1) LAURA (acute kidney injury) (2) Rhabdomyolysis (3) Altered level of consciousness (4) Severe sepsis (5) Dehydration Plan cont IVF. cont requisition approver. monitor labs. PTOT. Subjective Subjective no fever. awake/responsive. Objective Objective Last 24 Hour Vital Signs Date Time Temp Pulse Resp B/P Pulse Ox O2 Delivery O2 Flow Rate FiO2 08/07/16 12:00 96.8 64 20 120/78 99 Room Air 08/07/16 08:00 61 08/07/16 08:00 97.7 60 20 100/59 95 Room Air 08/07/16 04:00 97.5 60 18 113/63 97 Room Air 08/07/16 04:00 57 08/07/16 00:00 62 08/07/16 00:00 97.3 70 18 118/68 96 Room Air Intake and Output 08/06/16 08/07/16 19:00 07:00 Intake Total 1365 ml 840 ml Output Total 250 ml 1000 ml Balance 1115 ml -160 ml Intake Oral 600 ml 120 ml IV Total 765 ml 720 ml Output Urine Total 250 ml 1000 ml Laboratory Tests 08/07/16 05:35: White Blood Count 4.6L, Red Blood Count 3.64L, Hemoglobin 11.0L, Hematocrit 32.6L, Mean Corpuscular Volume 90, Mean Corpuscular Hemoglobin 30.3, Mean Corpuscular Hemoglobin Concent 33.8, Red Cell Distribution Width 13.5, Platelet Count 162, Mean Platelet Volume 7.1, Neutrophils (%) (Auto) 54.4, Lymphocytes (% ) (Auto) 28.0, Monocytes (%) (Auto) 12.2H, Eosinophils (%) (Auto) 3.9H, Basophils (%) (Auto) 1.5, Sodium Level 148H, Potassium Level 3.1L, Chloride Level 108H, Carbon Dioxide Level 28, Anion Gap 12, Blood Urea Nitrogen 18, Creatinine 0.8, Estimat Glomerular Filtration Rate , Glucose Level 120H, Calcium Level 8.1L, Total Creatine Kinase 1059H Height (Feet): 5 Height (Inches): 7.00 Weight (Pounds): 160 General Appearance: no apparent distress Cardiovascular: normal rate, regular rhythm Respiratory/Chest: lungs clear Abdomen: non tender, soft Extremities: non-pitting Neurologic: alert MIRAHMADITOMASA Aug 07, 2016 20:22
--- NOTE | 2016-08-07 20:56 | Pulmonology Progress Note ---
Assessment/Plan Assessment/Plan IMPRESSION: 1. Renal failure. 2. Hypotension. 3. Dehydration. 4. Rhabdomyolysis. 5. Left lung atelectasis. DISCUSSION: Continue medications, intravenous fluids, and hydration His respiratory status is stable. I will continue to follow. Agree with the use of empiric antibiotics. Subjective Interval Events: No new events Constitutional: Reports: no symptoms HEENT: Repors: no symptoms Respiratory: Reports: no symptoms Allergies: Coded Allergies: No Known Allergies (Unverified , 08/05/16) Objective Last 24 Hour Vital Signs Date Time Temp Pulse Resp B/P Pulse Ox O2 Delivery O2 Flow Rate FiO2 08/07/16 12:00 96.8 64 20 120/78 99 Room Air 08/07/16 08:00 61 08/07/16 08:00 97.7 60 20 100/59 95 Room Air 08/07/16 04:00 97.5 60 18 113/63 97 Room Air 08/07/16 04:00 57 08/07/16 00:00 62 08/07/16 00:00 97.3 70 18 118/68 96 Room Air Intake and Output 08/06/16 08/07/16 19:00 07:00 Intake Total 1365 ml 840 ml Output Total 250 ml 1000 ml Balance 1115 ml -160 ml Intake Oral 600 ml 120 ml IV Total 765 ml 720 ml Output Urine Total 250 ml 1000 ml General Appearance: no acute distress HEENT: normocephalic Respiratory/Chest: chest wall non-tender, lungs clear Cardiovascular: normal peripheral pulses, normal rate Microbiology Date/Time Source Procedure Growth Status 08/05/16 12:50 Blood Blood Culture - Preliminary NO GROWTH AFTER 24 HOURS Resulted 08/05/16 12:30 Blood Blood Culture - Preliminary NO GROWTH AFTER 24 HOURS Resulted 08/05/16 14:00 Nasal Nares MRSA Culture - Final NO METHICILLIN RESISTANT STAPH AUREUS... Complete 08/05/16 14:00 Rectum VRE Culture - Final NO VANCOMYCIN RESISTANT ENTEROCOCCUS ... Complete Laboratory Tests 08/07/16 05:35: White Blood Count 4.6L, Red Blood Count 3.64L, Hemoglobin 11.0L, Hematocrit 32.6L, Mean Corpuscular Volume 90, Mean Corpuscular Hemoglobin 30.3, Mean Corpuscular Hemoglobin Concent 33.8, Red Cell Distribution Width 13.5, Platelet Count 162, Mean Platelet Volume 7.1, Neutrophils (%) (Auto) 54.4, Lymphocytes (% ) (Auto) 28.0, Monocytes (%) (Auto) 12.2H, Eosinophils (%) (Auto) 3.9H, Basophils (%) (Auto) 1.5, Sodium Level 148H, Potassium Level 3.1L, Chloride Level 108H, Carbon Dioxide Level 28, Anion Gap 12, Blood Urea Nitrogen 18, Creatinine 0.8, Estimat Glomerular Filtration Rate , Glucose Level 120H, Calcium Level 8.1L, Total Creatine Kinase 1059H Current Medications Medications (Trade) Dose Ordered Sig/Gold Route PRN Reason Start Time Stop Time Status Last Admin Dose Admin Acetaminophen (Tylenol) 650 mg Q4H PRN ORAL Mild Pain (Pain Scale 1-3) 08/05/16 21:00 09/04/16 20:59 Dextrose STAT PRN IV Hypoglycemia 08/05/16 21:00 09/04/16 20:59 Dextrose/ Electrolytes (D5 0.45%NS W/ KCl 20mEq) 1,000 ml @ 60 mls/hr [id number] IV 08/07/16 19:30 09/06/16 19:29 Heparin Sodium (Porcine) (Heparin 5000 units/ml) 5,000 units EVERY 12 HOURS SUBQ 08/05/16 21:00 09/04/16 20:59 08/07/16 09:22 Ondansetron HCl (Zofran) 4 mg Q6H PRN IVP Nausea & Vomiting 08/05/16 21:00 09/04/16 20:59 Steve Gao MD Aug 07, 2016 20:56
[2016-08-08] VITALS: BP 139/79
[2016-08-08 04:00] VITALS: BP 148/95
[2016-08-08 07:37] LABS: ANION GAP 13 (5-15); CALCIUM 8.3 mg/dL (8.6-10.2); CARBON DIOXIDE 28 mEQ/L (20-30); CHLORIDE 102 mEQ/L (98-107); CREATININE 0.6 mg/dL (0.7-1.2); HEMOLYSIS 5; POTASSIUM 3.1 mEQ/L (3.4-4.9); SODIUM 143 mEQ/L (135-145)
[2016-08-08 08:00] VITALS: BP 148/63
--- NOTE | 2016-08-08 08:41 | Pulmonology Progress Note ---
Assessment/Plan Assessment/Plan IMPRESSION: 1. Renal failure. 2. Hypotension. 3. Dehydration. 4. Rhabdomyolysis. 5. Left lung atelectasis. DISCUSSION: Continue medications, intravenous fluids, and hydration His respiratory status is stable. I will continue to follow. Agree with the use of empiric antibiotics. Subjective Interval Events: No new events Constitutional: Reports: no symptoms HEENT: Repors: no symptoms Respiratory: Reports: no symptoms Cardiovascular: Reports: no symptoms Gastrointestinal/Abdominal: Reports: no symptoms Genitourinary: Reports: no symptoms Allergies: Coded Allergies: No Known Allergies (Unverified , 08/05/16) Objective Last 24 Hour Vital Signs Date Time Temp Pulse Resp B/P Pulse Ox O2 Delivery O2 Flow Rate FiO2 08/08/16 04:00 54 08/08/16 04:00 97.2 60 20 148/95 98 Room Air 08/08/16 00:00 98.6 59 20 139/79 99 Room Air 08/08/16 00:00 59 08/07/16 21:36 8 16 Room Air 08/07/16 20:00 98.8 64 16 122/72 98 Room Air 08/07/16 20:00 69 08/07/16 16:00 98.2 72 20 124/74 99 Room Air 08/07/16 16:00 62 08/07/16 12:00 96.8 64 20 120/78 99 Room Air Intake and Output 08/07/16 08/08/16 19:00 07:00 Intake Total 2745 ml 780 ml Output Total 400 ml 551 ml Balance 2345 ml 229 ml Intake Oral 560 ml 300 ml IV Total 2185 ml 480 ml Output Urine Total 400 ml 550 ml Stool Total 1 ml # Bowel Movements 1 1 General Appearance: no acute distress HEENT: normocephalic Respiratory/Chest: chest wall non-tender, lungs clear Cardiovascular: normal peripheral pulses, normal rate Microbiology Date/Time Source Procedure Growth Status 08/05/16 12:50 Blood Blood Culture - Preliminary NO GROWTH AFTER 48 HOURS Resulted 08/05/16 12:30 Blood Blood Culture - Preliminary NO GROWTH AFTER 48 HOURS Resulted 08/05/16 14:00 Nasal Nares MRSA Culture - Final NO METHICILLIN RESISTANT STAPH AUREUS... Complete 08/05/16 14:00 Rectum VRE Culture - Final NO VANCOMYCIN RESISTANT ENTEROCOCCUS ... Complete Laboratory Tests 08/08/16 06:45: Sodium Level 143, Potassium Level 3.1L, Chloride Level 102, Carbon Dioxide Level 28, Anion Gap 13, Blood Urea Nitrogen 8, Creatinine 0.6L, Estimat Glomerular Filtration Rate , Glucose Level 125H, Calcium Level 8.3L Current Medications Medications (Trade) Dose Ordered Sig/Gold Route PRN Reason Start Time Stop Time Status Last Admin Dose Admin Acetaminophen (Tylenol) 650 mg Q4H PRN ORAL Mild Pain (Pain Scale 1-3) 08/08/16 01:00 09/07/16 00:59 Dextrose (Dextrose 50%) STAT PRN IV Hypoglycemia 08/08/16 21:00 09/07/16 20:59 Dextrose/ Electrolytes (D5 0.45%NS W/ KCl 20mEq) 1,000 ml @ 60 mls/hr [id number] IV 08/07/16 23:30 09/06/16 23:29 Heparin Sodium (Porcine) (Heparin 5000 units/ml) 5,000 units EVERY 12 HOURS SUBQ 08/08/16 09:00 09/07/16 08:59 Ondansetron HCl (Zofran) 4 mg Q6H PRN IVP Nausea & Vomiting 08/08/16 03:00 09/07/16 02:59 Steve Gao MD Aug 08, 2016 08:41
[2016-08-08] MEDS: Heparin 5000 units/ml inj SUBQ SCH ×2 (09:19→21:26)
[2016-08-08 12:00] VITALS: BP 144/72
--- NOTE | 2016-08-08 14:45 | Nephrology Progress Note ---
Assessment/Plan Problem List: (1) Hypokalemia (2) Elevated brain natriuretic peptide (BNP) level (3) Altered mental status (4) Dehydration (5) LAURA (acute kidney injury) (6) Rhabdomyolysis (7) Severe sepsis Plan Replace K Monitor lytes, replete PRN Abx per ID Monitor neuro status Renal function stable Monitor I&O Continue taylor AM labs Subjective ROS Limited/Unobtainable: Yes Subjective In bed, in no apparent distress, confused but not agitated. Objective Objective Last 24 Hour Vital Signs Date Time Temp Pulse Resp B/P Pulse Ox O2 Delivery O2 Flow Rate FiO2 08/08/16 12:00 98.4 72 18 144/72 97 Room Air 08/08/16 08:05 60 08/08/16 08:00 98.1 64 17 148/63 97 Room Air 08/08/16 04:00 54 08/08/16 04:00 97.2 60 20 148/95 98 Room Air 08/08/16 00:00 98.6 59 20 139/79 99 Room Air 08/08/16 00:00 59 08/07/16 21:36 8 16 Room Air 08/07/16 20:00 98.8 64 16 122/72 98 Room Air 08/07/16 20:00 69 08/07/16 16:00 98.2 72 20 124/74 99 Room Air 08/07/16 16:00 62 Intake and Output 08/07/16 08/08/16 19:00 07:00 Intake Total 2745 ml 780 ml Output Total 400 ml 551 ml Balance 2345 ml 229 ml Intake Oral 560 ml 300 ml IV Total 2185 ml 480 ml Output Urine Total 400 ml 550 ml Stool Total 1 ml # Bowel Movements 1 1 Laboratory Tests 08/08/16 06:45: Sodium Level 143, Potassium Level 3.1L, Chloride Level 102, Carbon Dioxide Level 28, Anion Gap 13, Blood Urea Nitrogen 8, Creatinine 0.6L, Estimat Glomerular Filtration Rate , Glucose Level 125H, Calcium Level 8.3L Height (Feet): 5 Height (Inches): 7.00 Weight (Pounds): 160 General Appearance: no apparent distress EENT: normal ENT inspection Neck: non-tender, normal alignment Cardiovascular: normal peripheral pulses, normal rate, no JVD Respiratory/Chest: lungs clear, normal breath sounds Abdomen: non tender, soft, no organomegaly Genitourinary/Rectal: other - taylor Extremities: non-tender, normal inspection, no calf tenderness, normal capillary refill Neurologic: disoriented Sera Bosch N.P. Aug 08, 2016 14:45
--- NOTE | 2016-08-08 15:17 | Infectious Diseases Prog Note ---
Assessment/Plan Problems: (1) Severe sepsis Assessment & Plan: ruled out with negative blood culture, off cefepime and clindamycin , continue to monitor off antibiotics (2) Altered level of consciousness Assessment & Plan: rule out CASER UP pathology, recommend MRI images of the brain and neurology consult if not done yet (3) LAURA (acute kidney injury) Assessment & Plan: due to hypotension and dehydration, continue IVF , monitor UOP (4) Dehydration Assessment & Plan: continue IVF for hydration Subjective Constitutional: Denies: anorexia, chills, drenching sweats, fatigue, fever, no symptoms, other HEENT: Denies: congestion, coryza, dysphagia, hearing change, no symptoms, other, visual change Respiratory: Denies: dry cough, no symptoms, other, productive cough, shortness of breath Breasts: Denies: discharge, no symptoms, other, swelling, tenderness Cardiovascular: Denies: chest pain, dyspnea on exertion, no symptoms, other, palpitations Gastrointestinal/Abdominal: Denies: bloating, blood in stool, constipation, diarrhea, nausea, no symptoms, other, vomiting Genitourinary: Denies: dysuria, frequency, hematuria, no symptoms, nocturia, other Neurologic: Denies: confusion, headache, no symptoms, numbness, other, weakness Psychiatric: Denies: anxiety, depression, no symptoms, other Skin: Denies: no symptoms, other, rash, ulcer Allergies: Coded Allergies: No Known Allergies (Unverified , 08/05/16) Objective Vital Signs Last 24 Hour Vital Signs Date Time Temp Pulse Resp B/P Pulse Ox O2 Delivery O2 Flow Rate FiO2 08/08/16 12:00 98.4 72 18 144/72 97 Room Air 08/08/16 08:05 60 08/08/16 08:00 98.1 64 17 148/63 97 Room Air 08/08/16 04:00 54 08/08/16 04:00 97.2 60 20 148/95 98 Room Air 08/08/16 00:00 98.6 59 20 139/79 99 Room Air 08/08/16 00:00 59 08/07/16 21:36 8 16 Room Air 08/07/16 20:00 98.8 64 16 122/72 98 Room Air 08/07/16 20:00 69 08/07/16 16:00 98.2 72 20 124/74 99 Room Air 08/07/16 16:00 62 Height (Feet): 5 Height (Inches): 7.00 Weight (Pounds): 160 General Appearance: WD/WN, no acute distress HEENT: normocephalic, atraumatic, anicteric, mucous membranes moist Respiratory/Chest: chest wall non-tender, lungs clear, normal breath sounds, no respiratory distress, no accessory muscle use Cardiovascular: normal peripheral pulses, normal rate, regular rhythm, no gallop/murmur Abdomen: normal bowel sounds, soft, non tender, no organomegaly, non distended , no mass Extremities: no cyanosis, no clubbing Skin: no rash Laboratory Tests Test 08/08/16 06:45 Sodium Level 143 mEQ/L (135-145) Potassium Level 3.1 mEQ/L (3.4-4.9) L Chloride Level 102 mEQ/L (98-107) Carbon Dioxide Level 28 mEQ/L (20-30) Anion Gap 13 (5-15) Blood Urea Nitrogen 8 mg/dL (7-23) Creatinine 0.6 mg/dL (0.7-1.2) L Estimat Glomerular Filtration Rate mL/min (>60) Glucose Level 125 mg/dL (74-106) H Calcium Level 8.3 mg/dL (8.6-10.2) L Current Medications Medications (Trade) Dose Ordered Sig/Gold Route PRN Reason Start Time Stop Time Status Last Admin Dose Admin Acetaminophen (Tylenol) 650 mg Q4H PRN ORAL Mild Pain (Pain Scale 1-3) 08/08/16 01:00 09/07/16 00:59 Dextrose (Dextrose 50%) STAT PRN IV Hypoglycemia 08/08/16 21:00 09/07/16 20:59 Heparin Sodium (Porcine) (Heparin 5000 units/ml) 5,000 units EVERY 12 HOURS SUBQ 08/08/16 09:00 09/07/16 08:59 08/08/16 09:19 Ondansetron HCl (Zofran) 4 mg Q6H PRN IVP Nausea & Vomiting 08/08/16 03:00 09/07/16 02:59 Potassium Chloride (K-Dur) 20 meq DAILY ORAL 08/09/16 09:00 09/08/16 08:59 Edelmira James M.D. Aug 08, 2016 15:17
--- NOTE | 2016-08-08 15:54 | Cardiac Electrophysiology PN ---
Assessment/Plan Assessment/Plan 1. Hypotension. Due to dehydration and sepsis.Resolved with IV fluids and IV antibiotics. 2. Rhabdomyolysis with CK of more than 2600, especially with renal failure. IV fluids DCed. 3. Renal failure secondary to azotemia and rhabdomyolysis. 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 We will keep the patient on telemetry for close observation. 5. Placement issue DW RN Subjective Subjective Feeling better. In SR. No events overnight.No chest pain or SOB Objective Last 24 Hour Vital Signs Date Time Temp Pulse Resp B/P Pulse Ox O2 Delivery O2 Flow Rate FiO2 08/08/16 12:00 98.4 72 18 144/72 97 Room Air 08/08/16 08:15 86 16 Room Air 08/08/16 08:05 60 08/08/16 08:00 98.1 64 17 148/63 97 Room Air 08/08/16 04:00 54 08/08/16 04:00 97.2 60 20 148/95 98 Room Air 08/08/16 00:00 98.6 59 20 139/79 99 Room Air 08/08/16 00:00 59 08/07/16 21:36 8 16 Room Air 08/07/16 20:00 98.8 64 16 122/72 98 Room Air 08/07/16 20:00 69 08/07/16 16:00 98.2 72 20 124/74 99 Room Air 08/07/16 16:00 62 Intake and Output 08/07/16 08/08/16 19:00 07:00 Intake Total 2745 ml 780 ml Output Total 400 ml 551 ml Balance 2345 ml 229 ml Intake Oral 560 ml 300 ml IV Total 2185 ml 480 ml Output Urine Total 400 ml 550 ml Stool Total 1 ml # Bowel Movements 1 1 Laboratory Tests Test 08/08/16 06:45 Sodium Level 143 mEQ/L (135-145) Potassium Level 3.1 mEQ/L (3.4-4.9) L Chloride Level 102 mEQ/L (98-107) Carbon Dioxide Level 28 mEQ/L (20-30) Anion Gap 13 (5-15) Blood Urea Nitrogen 8 mg/dL (7-23) Creatinine 0.6 mg/dL (0.7-1.2) L Estimat Glomerular Filtration Rate mL/min (>60) Glucose Level 125 mg/dL (74-106) H Calcium Level 8.3 mg/dL (8.6-10.2) L Objective HEAD AND NECK: No JVD. LUNGS: Clear. CARDIOVASCULAR: Regular S1 and S2 with no gallop or murmur. ABDOMEN: Soft. EXTREMITIES: No pitting edema. BRIE DEJESUS Aug 08, 2016 15:54
[2016-08-08 16:00] VITALS: BP 117/73
[2016-08-08] MEDS ORDERED: Tubing IV Secondary IV ONE (18:49)
[2016-08-08] MEDS ORDERED: D5NS 1000ml IV ONE (18:49)
[2016-08-08 20:00] VITALS: BP 126/80
[2016-08-09] VITALS (7 sets, daily range): BP systolic 110–146; BP diastolic 69–93
[2016-08-09 08:08] LABS: BASOPHILS % (AUTO) 1.5 % (0.0-2.0); EOSINOPHILS % (AUTO) 3.8 % (0.0-3.0); LYMPHOCYTES % (AUTO) 34.4 % (20.0-45.0); MEAN CORPUSCULAR HGB CONC 33.8 G/DL (32.0-36.0); MEAN CORPUSCULAR VOLUME 89 FL (80-99); MEAN PLATELET VOLUME 6.9 FL (6.5-10.1); MONOCYTES % (AUTO) 10.8 % (1.0-10.0); NEUTROPHILS % (AUTO) 49.6 % (45.0-75.0); PLATELET COUNT 175 K/UL (150-450); RED BLOOD COUNT 4.08 M/UL (4.70-6.10); RED CELL DISTRIBUTION WIDTH 13.1 % (11.6-14.8); WHITE BLOOD COUNT 4.5 K/UL (4.8-10.8)
--- NOTE | 2016-08-09 08:24 | Cardiology Report ---
APPROVED REPORT EXAM: Two-dimensional and M-mode echocardiogram with Doppler and color Doppler. INDICATION Chest Pain M-Mode DIMENSIONS IVSd0.9 (0.7-1.1cm)Left Atrium (MM)3.1 (1.6-4.0cm) LVDd3.9 (3.5-5.6cm)Aortic Root2.7 (2.0-3.7cm) PWd1.0 (0.7-1.1cm)Aortic Cusp Exc.1.7 (1.5-2.0cm) LVDs2.3 (2.5-4.0cm) PWs1.1 cm Technically difficult study due to poor acoustic windows. Normal left ventricular chamber size, systolic function and wall motion. Left ventricular ejection fraction estimated to be 60-65 %. Mild left ventricular hypertrophy. No evidence of pericardial fat or effusion. Right cardiac chamber sizes are within normal limits. Mild left atrial enlargement by 2D. Focal aortic valve sclerosis with adequate cusp excursion Thickened mitral valve leaflets with normal excursion. Mild mitral annulus and aortic root calcification. Pulmonic valve not well visualized. Normal tricuspid valve structure. IVC is normal in size with physiologic collapse. A color flow and spectral Doppler study was performed and revealed: No aortic regurgitation. Mild mitral regurgitation. Left ventricular diastolic dysfunction grade 1. Moderate tricuspid regurgitation. Tricuspid systolic velocities suggests peak right ventricular systolic pressure of 29 mmHg
[2016-08-09 08:32] LABS: ANION GAP 13 (5-15); CALCIUM 8.9 mg/dL (8.6-10.2); CARBON DIOXIDE 28 mEQ/L (20-30); CHLORIDE 101 mEQ/L (98-107); CREATININE 0.7 mg/dL (0.7-1.2); HEMOLYSIS 5; POTASSIUM 3.3 mEQ/L (3.4-4.9); SODIUM 142 mEQ/L (135-145)
[2016-08-09] MEDS: Heparin 5000 units/ml inj SUBQ SCH ×2 (09:24→21:12)
--- NOTE | 2016-08-09 11:38 | Cardiology Report ---
APPROVED REPORT EKG Measurement Heart [id number] Sinus rhythm with 1st degree AV block Incomplete right bundle branch block Left anterior fascicular block Septal infarct, age undetermined Prolonged QT Abnormal ECG
--- NOTE | 2016-08-09 14:29 | Infectious Diseases Prog Note ---
Assessment/Plan Problems: (1) Severe sepsis Assessment & Plan: ruled out with negative blood culture, off cefepime and clindamycin , continue to monitor off antibiotics (2) Altered level of consciousness Assessment & Plan: rule out LUMBER SORTER pathology, recommend MRI images of the brain and neurology consult if not done yet (3) LAURA (acute kidney injury) Assessment & Plan: due to hypotension and dehydration, continue IVF , monitor UOP (4) Dehydration Assessment & Plan: continue IVF for hydration Subjective Constitutional: Denies: anorexia, chills, drenching sweats, fatigue, fever, no symptoms, other HEENT: Denies: congestion, coryza, dysphagia, hearing change, no symptoms, other, visual change Respiratory: Denies: dry cough, no symptoms, other, productive cough, shortness of breath Breasts: Denies: discharge, no symptoms, other, swelling, tenderness Cardiovascular: Denies: chest pain, dyspnea on exertion, no symptoms, other, palpitations Gastrointestinal/Abdominal: Denies: bloating, blood in stool, constipation, diarrhea, nausea, no symptoms, other, vomiting Genitourinary: Denies: dysuria, frequency, hematuria, no symptoms, nocturia, other Neurologic: Denies: confusion, headache, no symptoms, numbness, other, weakness Psychiatric: Denies: anxiety, depression, no symptoms, other Allergies: Coded Allergies: No Known Allergies (Unverified , 08/05/16) Objective Vital Signs Last 24 Hour Vital Signs Date Time Temp Pulse Resp B/P Pulse Ox O2 Delivery O2 Flow Rate FiO2 08/09/16 12:00 97.8 80 18 120/82 95 Room Air 08/09/16 08:00 97.5 72 17 123/75 95 Room Air 08/09/16 07:37 70 08/09/16 04:09 98.2 89 21 110/72 98 Room Air 08/09/16 04:00 61 08/09/16 00:46 98.6 93 21 118/93 97 Room Air 08/09/16 00:00 68 08/08/16 20:00 97.3 70 21 126/80 98 Room Air 08/08/16 20:00 71 08/08/16 16:00 98.0 65 20 117/73 98 Room Air 08/08/16 16:00 75 Height (Feet): 5 Height (Inches): 7.00 Weight (Pounds): 160 General Appearance: WD/WN, no acute distress HEENT: normocephalic, atraumatic, anicteric, mucous membranes moist Respiratory/Chest: chest wall non-tender, lungs clear, normal breath sounds, no respiratory distress, no accessory muscle use Cardiovascular: normal peripheral pulses, normal rate, regular rhythm, no gallop/murmur Abdomen: normal bowel sounds, soft, non tender, no organomegaly, non distended , no mass Extremities: no cyanosis, no clubbing Skin: no rash, no lesions Laboratory Tests Test 08/09/16 06:53 White Blood Count 4.5 K/UL (4.8-10.8) L Red Blood Count 4.08 M/UL (4.70-6.10) L Hemoglobin 12.2 G/DL (14.2-18.0) L Hematocrit 36.1 % (42.0-52.0) L Mean Corpuscular Volume 89 FL (80-99) Mean Corpuscular Hemoglobin 30.0 PG (27.0-31.0) Mean Corpuscular Hemoglobin Concent 33.8 G/DL (32.0-36.0) Red Cell Distribution Width 13.1 % (11.6-14.8) Platelet Count 175 K/UL (150-450) Mean Platelet Volume 6.9 FL (6.5-10.1) Neutrophils (%) (Auto) 49.6 % (45.0-75.0) Lymphocytes (%) (Auto) 34.4 % (20.0-45.0) Monocytes (%) (Auto) 10.8 % (1.0-10.0) H Eosinophils (%) (Auto) 3.8 % (0.0-3.0) H Basophils (%) (Auto) 1.5 % (0.0-2.0) Sodium Level 142 mEQ/L (135-145) Potassium Level 3.3 mEQ/L (3.4-4.9) L Chloride Level 101 mEQ/L (98-107) Carbon Dioxide Level 28 mEQ/L (20-30) Anion Gap 13 (5-15) Blood Urea Nitrogen 6 mg/dL (7-23) L Creatinine 0.7 mg/dL (0.7-1.2) Estimat Glomerular Filtration Rate mL/min (>60) Glucose Level 100 mg/dL (74-106) Calcium Level 8.9 mg/dL (8.6-10.2) Current Medications Medications (Trade) Dose Ordered Sig/Gold Route PRN Reason Start Time Stop Time Status Last Admin Dose Admin Acetaminophen (Tylenol) 650 mg Q4H PRN ORAL Mild Pain (Pain Scale 1-3) 08/08/16 01:00 09/07/16 00:59 Dextrose (Dextrose 50%) STAT PRN IV Hypoglycemia 08/08/16 21:00 09/07/16 20:59 Heparin Sodium (Porcine) (Heparin 5000 units/ml) 5,000 units EVERY 12 HOURS SUBQ 08/08/16 09:00 09/07/16 08:59 08/09/16 09:24 Ondansetron HCl (Zofran) 4 mg Q6H PRN IVP Nausea & Vomiting 08/08/16 03:00 09/07/16 02:59 Potassium Chloride (K-Dur) 20 meq DAILY ORAL 08/09/16 09:00 09/08/16 08:59 08/09/16 09:23 Edelmira James M.D. Aug 09, 2016 14:29
--- NOTE | 2016-08-09 15:14 | Pulmonology Progress Note ---
Assessment/Plan Problems: (1) Acute encephalopathy (2) Rhabdomyolysis (3) LAURA (acute kidney injury) (4) Dementia Assessment/Plan electrolytes improved Neuro called social service consult conduction abnormalities on ekg, transfer to med/surg when ok with Cardio Subjective ROS Limited/Unobtainable: No Interval Events: awake, no new complains Allergies: Coded Allergies: No Known Allergies (Unverified , 08/05/16) Objective Last 24 Hour Vital Signs Date Time Temp Pulse Resp B/P Pulse Ox O2 Delivery O2 Flow Rate FiO2 08/09/16 12:00 97.8 80 18 120/82 95 Room Air 08/09/16 08:00 97.5 72 17 123/75 95 Room Air 08/09/16 07:37 70 08/09/16 04:09 98.2 89 21 110/72 98 Room Air 08/09/16 04:00 61 08/09/16 00:46 98.6 93 21 118/93 97 Room Air 08/09/16 00:00 68 08/08/16 20:00 97.3 70 21 126/80 98 Room Air 08/08/16 20:00 71 08/08/16 16:00 98.0 65 20 117/73 98 Room Air 08/08/16 16:00 75 Intake and Output 08/08/16 08/09/16 19:00 07:00 Intake Total 740 ml 200 ml Output Total 320 ml 1000 ml Balance 420 ml -800 ml Intake Oral 460 ml 200 ml IV Total 280 ml Output Urine Total 320 ml 1000 ml # Bowel Movements 1 General Appearance: cachetic HEENT: normocephalic, atraumatic Cardiovascular: normal peripheral pulses, regular rhythm Abdomen: normal bowel sounds, soft, non tender Genitourinary: normal external genitalia Skin: no lesions, no ulcers Laboratory Tests 08/09/16 06:53: White Blood Count 4.5L, Red Blood Count 4.08L, Hemoglobin 12.2L, Hematocrit 36.1L, Mean Corpuscular Volume 89, Mean Corpuscular Hemoglobin 30.0, Mean Corpuscular Hemoglobin Concent 33.8, Red Cell Distribution Width 13.1, Platelet Count 175, Mean Platelet Volume 6.9, Neutrophils (%) (Auto) 49.6, Lymphocytes (% ) (Auto) 34.4, Monocytes (%) (Auto) 10.8H, Eosinophils (%) (Auto) 3.8H, Basophils (%) (Auto) 1.5, Sodium Level 142, Potassium Level 3.3L, Chloride Level 101, Carbon Dioxide Level 28, Anion Gap 13, Blood Urea Nitrogen 6L, Creatinine 0.7, Estimat Glomerular Filtration Rate , Glucose Level 100, Calcium Level 8.9 Current Medications Medications (Trade) Dose Ordered Sig/Gold Route PRN Reason Start Time Stop Time Status Last Admin Dose Admin Acetaminophen (Tylenol) 650 mg Q4H PRN ORAL Mild Pain (Pain Scale 1-3) 08/08/16 01:00 09/07/16 00:59 Dextrose (Dextrose 50%) STAT PRN IV Hypoglycemia 08/08/16 21:00 09/07/16 20:59 Heparin Sodium (Porcine) (Heparin 5000 units/ml) 5,000 units EVERY 12 HOURS SUBQ 08/08/16 09:00 09/07/16 08:59 08/09/16 09:24 Ondansetron HCl (Zofran) 4 mg Q6H PRN IVP Nausea & Vomiting 08/08/16 03:00 09/07/16 02:59 Potassium Chloride (K-Dur) 20 meq DAILY ORAL 08/09/16 09:00 09/08/16 08:59 08/09/16 09:23 ARNAUD RICHARDSON Aug 09, 2016 15:14
--- NOTE | 2016-08-09 15:19 | Cardiac Electrophysiology PN ---
Assessment/Plan Assessment/Plan 1. Hypotension. Due to dehydration and sepsis.Resolved with IV fluids and IV antibiotics. 2. Rhabdomyolysis with CK of more than 2600, especially with renal failure. 3. Renal failure secondary to azotemia and rhabdomyolysis. 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 5. Placement issue. DIMPLE RN DC tele. Subjective Subjective Feeling better. In SR. No chest pain or SOB Objective Last 24 Hour Vital Signs Date Time Temp Pulse Resp B/P Pulse Ox O2 Delivery O2 Flow Rate FiO2 08/09/16 12:00 97.8 80 18 120/82 95 Room Air 08/09/16 08:00 97.5 72 17 123/75 95 Room Air 08/09/16 07:37 70 08/09/16 04:09 98.2 89 21 110/72 98 Room Air 08/09/16 04:00 61 08/09/16 00:46 98.6 93 21 118/93 97 Room Air 08/09/16 00:00 68 08/08/16 20:00 97.3 70 21 126/80 98 Room Air 08/08/16 20:00 71 08/08/16 16:00 98.0 65 20 117/73 98 Room Air 08/08/16 16:00 75 Intake and Output 08/08/16 08/09/16 19:00 07:00 Intake Total 740 ml 200 ml Output Total 320 ml 1000 ml Balance 420 ml -800 ml Intake Oral 460 ml 200 ml IV Total 280 ml Output Urine Total 320 ml 1000 ml # Bowel Movements 1 Laboratory Tests Test 08/09/16 06:53 White Blood Count 4.5 K/UL (4.8-10.8) L Red Blood Count 4.08 M/UL (4.70-6.10) L Hemoglobin 12.2 G/DL (14.2-18.0) L Hematocrit 36.1 % (42.0-52.0) L Mean Corpuscular Volume 89 FL (80-99) Mean Corpuscular Hemoglobin 30.0 PG (27.0-31.0) Mean Corpuscular Hemoglobin Concent 33.8 G/DL (32.0-36.0) Red Cell Distribution Width 13.1 % (11.6-14.8) Platelet Count 175 K/UL (150-450) Mean Platelet Volume 6.9 FL (6.5-10.1) Neutrophils (%) (Auto) 49.6 % (45.0-75.0) Lymphocytes (%) (Auto) 34.4 % (20.0-45.0) Monocytes (%) (Auto) 10.8 % (1.0-10.0) H Eosinophils (%) (Auto) 3.8 % (0.0-3.0) H Basophils (%) (Auto) 1.5 % (0.0-2.0) Sodium Level 142 mEQ/L (135-145) Potassium Level 3.3 mEQ/L (3.4-4.9) L Chloride Level 101 mEQ/L (98-107) Carbon Dioxide Level 28 mEQ/L (20-30) Anion Gap 13 (5-15) Blood Urea Nitrogen 6 mg/dL (7-23) L Creatinine 0.7 mg/dL (0.7-1.2) Estimat Glomerular Filtration Rate mL/min (>60) Glucose Level 100 mg/dL (74-106) Calcium Level 8.9 mg/dL (8.6-10.2) Objective HEAD AND NECK: No JVD. LUNGS: Clear. CARDIOVASCULAR: Regular S1 and S2 with no gallop or murmur. ABDOMEN: Soft. EXTREMITIES: No pitting edema. BRIE DEJESUS Aug 09, 2016 15:19
[2016-08-10] VITALS (7 sets, daily range): BP systolic 93–131; BP diastolic 57–88
[2016-08-10] MEDS: Heparin 5000 units/ml inj SUBQ SCH ×2 (08:30→21:11)
--- NOTE | 2016-08-10 10:21 | Consultation ---
Consult Note Consult Note Patient seen by Dr Estrada yesterday I will sign off Steve Gao MD Aug 10, 2016 10:21
--- NOTE | 2016-08-10 16:16 | Infectious Diseases Prog Note ---
Assessment/Plan Problems: (1) Severe sepsis Assessment & Plan: ruled out with negative blood culture, off cefepime and clindamycin , continue to monitor off antibiotics (2) Altered level of consciousness Assessment & Plan: rule out INSTRUMENTATION AND CONTROLS DESIGNER pathology, recommend MRI images of the brain and neurology consult if not done yet (3) LAURA (acute kidney injury) Assessment & Plan: due to hypotension and dehydration, continue IVF , monitor UOP (4) Dehydration Assessment & Plan: continue IVF for hydration Subjective Constitutional: Denies: anorexia, chills, drenching sweats, fatigue, fever, no symptoms, other HEENT: Denies: congestion, coryza, dysphagia, hearing change, no symptoms, other, visual change Respiratory: Denies: dry cough, no symptoms, other, productive cough, shortness of breath Breasts: Denies: discharge, no symptoms, other, swelling, tenderness Cardiovascular: Denies: chest pain, dyspnea on exertion, no symptoms, other, palpitations Gastrointestinal/Abdominal: Denies: bloating, blood in stool, constipation, diarrhea, nausea, no symptoms, other, vomiting Genitourinary: Denies: dysuria, frequency, hematuria, no symptoms, nocturia, other Neurologic: Denies: confusion, headache, no symptoms, numbness, other, weakness Psychiatric: Denies: anxiety, depression, no symptoms, other Skin: Denies: no symptoms, other, rash, ulcer Allergies: Coded Allergies: No Known Allergies (Unverified , 08/05/16) Objective Vital Signs Last 24 Hour Vital Signs Date Time Temp Pulse Resp B/P Pulse Ox O2 Delivery O2 Flow Rate FiO2 08/10/16 12:48 97.8 66 17 125/88 97 Room Air 08/10/16 08:56 98.1 63 18 127/80 97 Room Air 08/10/16 03:49 97.9 66 18 131/84 97 Room Air 08/10/16 00:00 98.1 67 18 128/87 98 Room Air 08/09/16 22:20 97.3 70 20 131/82 96 Room Air 08/09/16 20:00 100.2 80 18 146/89 97 Room Air Height (Feet): 5 Height (Inches): 7.00 Weight (Pounds): 160 General Appearance: WD/WN, no acute distress HEENT: normocephalic, atraumatic, anicteric Respiratory/Chest: chest wall non-tender, lungs clear, normal breath sounds, no respiratory distress Cardiovascular: normal peripheral pulses, normal rate, regular rhythm Abdomen: normal bowel sounds, soft, non tender, no organomegaly, non distended Extremities: no cyanosis, no clubbing Skin: no rash, no lesions Current Medications Medications (Trade) Dose Ordered Sig/Gold Route PRN Reason Start Time Stop Time Status Last Admin Dose Admin Acetaminophen (Tylenol) 650 mg Q4H PRN ORAL Mild Pain (Pain Scale 1-3) 08/10/16 01:00 09/09/16 00:59 Dextrose (Dextrose 50%) STAT PRN IV Hypoglycemia 08/10/16 21:00 09/09/16 20:59 Heparin Sodium (Porcine) (Heparin 5000 units/ml) 5,000 units EVERY 12 HOURS SUBQ 08/10/16 09:00 09/09/16 08:59 08/10/16 08:30 Ondansetron HCl (Zofran) 4 mg Q6H PRN IVP Nausea & Vomiting 08/10/16 03:00 09/09/16 02:59 Potassium Chloride (K-Dur) 20 meq DAILY ORAL 08/10/16 09:00 09/09/16 08:59 08/10/16 08:17 Edelmira James M.D. Aug 10, 2016 16:15
--- NOTE | 2016-08-10 18:40 | Cardiac Electrophysiology PN ---
Assessment/Plan Assessment/Plan 1. Hypotension. Due to dehydration and sepsis.Resolved with IV fluids and IV antibiotics. 2. Rhabdomyolysis with CK of more than 2600 3. Renal failure secondary to azotemia and rhabdomyolysis. 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 5. Placement issue. DIMPLE RN and Dr Estrada Subjective Subjective Comfortable in NAD.No chest pain or SOB. Off tele. Objective Last 24 Hour Vital Signs Date Time Temp Pulse Resp B/P Pulse Ox O2 Delivery O2 Flow Rate FiO2 08/10/16 16:11 97.9 83 22 119/75 Room Air 08/10/16 12:48 97.8 66 17 125/88 97 Room Air 08/10/16 08:56 98.1 63 18 127/80 97 Room Air 08/10/16 03:49 97.9 66 18 131/84 97 Room Air 08/10/16 00:00 98.1 67 18 128/87 98 Room Air 08/09/16 22:20 97.3 70 20 131/82 96 Room Air 08/09/16 20:00 100.2 80 18 146/89 97 Room Air Intake and Output 08/09/16 08/10/16 19:00 07:00 Intake Total 450 ml 760 ml Output Total 440 ml 900 ml Balance 10 ml -140 ml Intake Oral 450 ml 760 ml Output Urine Total 440 ml 900 ml # Bowel Movements 1 1 Current Medications Medications (Trade) Dose Ordered Sig/Gold Route PRN Reason Start Time Stop Time Status Last Admin Dose Admin Acetaminophen (Tylenol) 650 mg Q4H PRN ORAL Mild Pain (Pain Scale 1-3) 08/10/16 01:00 09/09/16 00:59 Dextrose (Dextrose 50%) STAT PRN IV Hypoglycemia 08/10/16 21:00 09/09/16 20:59 Heparin Sodium (Porcine) (Heparin 5000 units/ml) 5,000 units EVERY 12 HOURS SUBQ 08/10/16 09:00 09/09/16 08:59 08/10/16 08:30 Ondansetron HCl (Zofran) 4 mg Q6H PRN IVP Nausea & Vomiting 08/10/16 03:00 09/09/16 02:59 Potassium Chloride (K-Dur) 20 meq DAILY ORAL 08/10/16 09:00 4/21/17 08:59 08/10/16 08:17 Objective HEAD AND NECK: No JVD. LUNGS: Clear. CARDIOVASCULAR: Regular S1 and S2 with no gallop or murmur. ABDOMEN: Soft. EXTREMITIES: No pitting edema. BRIE DEJESUS Aug 10, 2016 18:40
--- NOTE | 2016-08-10 22:46 | Pulmonology Progress Note ---
Assessment/Plan Problems: (1) Acute encephalopathy (2) Rhabdomyolysis (3) LAURA (acute kidney injury) (4) Dementia Assessment/Plan electrolytes improved Neuro called social service consult conduction abnormalities on ekg, transfer to med/surg when ok with Cardio Subjective ROS Limited/Unobtainable: Yes Constitutional: Reports: anorexia, fatigue Neurologic: Reports: confusion, weakness Allergies: Coded Allergies: No Known Allergies (Unverified , 08/05/16) Objective Last 24 Hour Vital Signs Date Time Temp Pulse Resp B/P Pulse Ox O2 Delivery O2 Flow Rate FiO2 08/10/16 20:00 99.7 99 22 93/61 97 Room Air 08/10/16 16:11 97.9 83 22 119/75 Room Air 08/10/16 12:48 97.8 66 17 125/88 97 Room Air 08/10/16 08:56 98.1 63 18 127/80 97 Room Air 08/10/16 03:49 97.9 66 18 131/84 97 Room Air 08/10/16 00:00 98.1 67 18 128/87 98 Room Air Intake and Output 08/09/16 08/10/16 19:00 07:00 Intake Total 450 ml 760 ml Output Total 440 ml 900 ml Balance 10 ml -140 ml Intake Oral 450 ml 760 ml Output Urine Total 440 ml 900 ml # Bowel Movements 1 1 General Appearance: no acute distress HEENT: normocephalic, atraumatic, PERRL Respiratory/Chest: chest wall non-tender, decreased breath sounds, accessory muscle use Cardiovascular: normal peripheral pulses, normal rate, regular rhythm, no JVD Abdomen: normal bowel sounds, soft, non tender, no organomegaly, non distended Genitourinary: normal external genitalia Extremities: no cyanosis, no clubbing Skin: rash, lesions Neurologic/Psychiatric: disoriented, unresponsiveness Current Medications Medications (Trade) Dose Ordered Sig/Gold Route PRN Reason Start Time Stop Time Status Last Admin Dose Admin Acetaminophen (Tylenol) 650 mg Q4H PRN ORAL Mild Pain (Pain Scale 1-3) 08/10/16 01:00 09/09/16 00:59 Dextrose (Dextrose 50%) STAT PRN IV Hypoglycemia 08/10/16 21:00 09/09/16 20:59 Heparin Sodium (Porcine) (Heparin 5000 units/ml) 5,000 units EVERY 12 HOURS SUBQ 08/10/16 09:00 09/09/16 08:59 08/10/16 21:11 Ondansetron HCl (Zofran) 4 mg Q6H PRN IVP Nausea & Vomiting 08/10/16 03:00 09/09/16 02:59 Potassium Chloride (K-Dur) 20 meq DAILY ORAL 08/10/16 09:00 09/09/16 08:59 08/10/16 08:17 ARNAUD RICHARDSON Aug 10, 2016 22:46
[2016-08-11] VITALS: BP 119/87
[2016-08-11 04:00] VITALS: BP 115/76
[2016-08-11 08:00] VITALS: BP 122/82
[2016-08-11] MEDS: Heparin 5000 units/ml inj SUBQ SCH (08:44)
[2016-08-11 11:08] LABS: EOSINOPHILS % (AUTO) 3.4 % (0.0-3.0); MEAN CORPUSCULAR HEMOGLOBIN 29.3 PG (27.0-31.0); MEAN CORPUSCULAR HGB CONC 32.8 G/DL (32.0-36.0); MEAN CORPUSCULAR VOLUME 89 FL (80-99); MEAN PLATELET VOLUME 6.6 FL (6.5-10.1); MONOCYTES % (AUTO) 11.1 % (1.0-10.0); NEUTROPHILS % (AUTO) 55.5 % (45.0-75.0); PLATELET COUNT 219 K/UL (150-450); RED BLOOD COUNT 4.32 M/UL (4.70-6.10); RED CELL DISTRIBUTION WIDTH 13.5 % (11.6-14.8); WHITE BLOOD COUNT 4.8 K/UL (4.8-10.8)
[2016-08-11 11:31] LABS: ANION GAP 10 (5-15); CALCIUM 8.9 mg/dL (8.6-10.2); CARBON DIOXIDE 29 mEQ/L (20-30); CHLORIDE 102 mEQ/L (98-107); CREATININE 0.9 mg/dL (0.7-1.2); HEMOLYSIS 7; POTASSIUM 4.1 mEQ/L (3.4-4.9); SODIUM 141 mEQ/L (135-145)
[2016-08-11 12:00] VITALS: BP 125/78
[2016-08-11 16:15] VITALS: BP 120/77
--- NOTE | 2016-08-11 16:48 | Infectious Diseases Prog Note ---
Assessment/Plan Problems: (1) Altered level of consciousness Assessment & Plan: rule out PROSTHETICS ASSISTANT pathology, recommend MRI images of the brain and neurology consult if not done yet (2) LAURA (acute kidney injury) Assessment & Plan: due to hypotension and dehydration, continue IVF , monitor UOP (3) Dehydration Assessment & Plan: continue IVF for hydration Subjective Constitutional: Reports: no symptoms HEENT: Reports: no symptoms Respiratory: Reports: no symptoms Breasts: Reports: no symptoms Cardiovascular: Reports: no symptoms Gastrointestinal/Abdominal: Reports: no symptoms Genitourinary: Reports: no symptoms Neurologic: Reports: no symptoms Psychiatric: Reports: no symptoms Skin: Reports: no symptoms Allergies: Coded Allergies: No Known Allergies (Unverified , 08/05/16) Objective Vital Signs Last 24 Hour Vital Signs Date Time Temp Pulse Resp B/P Pulse Ox O2 Delivery O2 Flow Rate FiO2 08/11/16 16:15 97.6 78 21 120/77 97 Room Air 08/11/16 12:00 97.7 71 19 125/78 98 Room Air 08/11/16 08:00 97.2 67 20 122/82 97 Room Air 08/11/16 04:00 97.9 69 18 115/76 97 Room Air 08/11/16 00:00 97.8 73 18 119/87 97 08/10/16 20:00 99.7 99 22 93/61 97 Room Air Height (Feet): 5 Height (Inches): 7.00 Weight (Pounds): 160 General Appearance: WD/WN, no acute distress HEENT: normocephalic, atraumatic, anicteric, mucous membranes moist Respiratory/Chest: chest wall non-tender, lungs clear, normal breath sounds, no respiratory distress, no accessory muscle use Cardiovascular: normal peripheral pulses, normal rate, regular rhythm, no JVD Abdomen: normal bowel sounds, soft, non tender, no organomegaly, non distended , no mass Extremities: no cyanosis, no clubbing Skin: no rash, no lesions Laboratory Tests Test 08/11/16 10:45 White Blood Count 4.8 K/UL (4.8-10.8) Red Blood Count 4.32 M/UL (4.70-6.10) L Hemoglobin 12.7 G/DL (14.2-18.0) L Hematocrit 38.6 % (42.0-52.0) L Mean Corpuscular Volume 89 FL (80-99) Mean Corpuscular Hemoglobin 29.3 PG (27.0-31.0) Mean Corpuscular Hemoglobin Concent 32.8 G/DL (32.0-36.0) Red Cell Distribution Width 13.5 % (11.6-14.8) Platelet Count 219 K/UL (150-450) Mean Platelet Volume 6.6 FL (6.5-10.1) Neutrophils (%) (Auto) 55.5 % (45.0-75.0) Lymphocytes (%) (Auto) 29.0 % (20.0-45.0) Monocytes (%) (Auto) 11.1 % (1.0-10.0) H Eosinophils (%) (Auto) 3.4 % (0.0-3.0) H Basophils (%) (Auto) 1.0 % (0.0-2.0) Sodium Level 141 mEQ/L (135-145) Potassium Level 4.1 mEQ/L (3.4-4.9) Chloride Level 102 mEQ/L (98-107) Carbon Dioxide Level 29 mEQ/L (20-30) Anion Gap 10 (5-15) Blood Urea Nitrogen 10 mg/dL (7-23) Creatinine 0.9 mg/dL (0.7-1.2) Estimat Glomerular Filtration Rate mL/min (>60) Glucose Level 122 mg/dL (74-106) H Calcium Level 8.9 mg/dL (8.6-10.2) Current Medications Medications (Trade) Dose Ordered Sig/Gold Route PRN Reason Start Time Stop Time Status Last Admin Dose Admin Acetaminophen (Tylenol) 650 mg Q4H PRN ORAL Mild Pain (Pain Scale 1-3) 08/10/16 01:00 09/09/16 00:59 Dextrose (Dextrose 50%) STAT PRN IV Hypoglycemia 08/10/16 21:00 09/09/16 20:59 Heparin Sodium (Porcine) (Heparin 5000 units/ml) 5,000 units EVERY 12 HOURS SUBQ 08/10/16 09:00 09/09/16 08:59 08/11/16 08:44 Ondansetron HCl (Zofran) 4 mg Q6H PRN IVP Nausea & Vomiting 08/10/16 03:00 09/09/16 02:59 Edelmira James M.D. Aug 11, 2016 16:48
[2016-08-11 20:00] VITALS: BP 103/61
[2016-08-11] MEDS ORDERED: Tubing IV Secondary IV ONE (20:59)
[2016-08-11] MEDS ORDERED: D5NS 1000ml IV ONE (20:59)
--- NOTE | 2016-08-11 23:51 | Pulmonology Progress Note ---
Assessment/Plan Problems: (1) Acute encephalopathy (2) Rhabdomyolysis (3) LAURA (acute kidney injury) (4) Dementia Assessment/Plan electrolytes improved Neuro called social service consult conduction abnormalities on ekg, transfer to med/surg when ok with Cardio Subjective ROS Limited/Unobtainable: Yes Neurologic: Reports: confusion, weakness Allergies: Coded Allergies: No Known Allergies (Unverified , 08/05/16) Objective Last 24 Hour Vital Signs Date Time Temp Pulse Resp B/P Pulse Ox O2 Delivery O2 Flow Rate FiO2 08/11/16 20:00 96.6 101 19 103/61 96 Room Air 08/11/16 16:15 97.6 78 21 120/77 97 Room Air 08/11/16 12:00 97.7 71 19 125/78 98 Room Air 08/11/16 08:00 97.2 67 20 122/82 97 Room Air 08/11/16 04:00 97.9 69 18 115/76 97 Room Air 08/11/16 00:00 97.8 73 18 119/87 97 Intake and Output 08/10/16 08/11/16 19:00 07:00 Intake Total 240 ml 100 ml Output Total 925 ml Balance 240 ml -825 ml Intake Oral 240 ml 100 ml Output Urine Total 925 ml # Voids 1 # Bowel Movements 1 General Appearance: no acute distress HEENT: normocephalic, atraumatic, PERRL Respiratory/Chest: chest wall non-tender, normal breath sounds, no respiratory distress, no accessory muscle use Cardiovascular: normal peripheral pulses, normal rate, regular rhythm, no JVD Abdomen: normal bowel sounds, soft, non tender, no organomegaly Genitourinary: normal external genitalia Extremities: no cyanosis Skin: no rash Neurologic/Psychiatric: abnormal CN, unresponsiveness Laboratory Tests 08/11/16 10:45: White Blood Count 4.8, Red Blood Count 4.32L, Hemoglobin 12.7L, Hematocrit 38.6L , Mean Corpuscular Volume 89, Mean Corpuscular Hemoglobin 29.3, Mean Corpuscular Hemoglobin Concent 32.8, Red Cell Distribution Width 13.5, Platelet Count 219, Mean Platelet Volume 6.6, Neutrophils (%) (Auto) 55.5, Lymphocytes (% ) (Auto) 29.0, Monocytes (%) (Auto) 11.1H, Eosinophils (%) (Auto) 3.4H, Basophils (%) (Auto) 1.0, Sodium Level 141, Potassium Level 4.1, Chloride Level 102, Carbon Dioxide Level 29, Anion Gap 10, Blood Urea Nitrogen 10, Creatinine 0.9, Estimat Glomerular Filtration Rate , Glucose Level 122H, Calcium Level 8.9 ARNAUD RICHARDSON Aug 11, 2016 23:51
--- NOTE | 2016-08-12 16:59 | Discharge Summary ---
Discharge Summary Hospital Course Date of Admission Aug 05, 2016 at 14:10 Date of Discharge Aug 11, 2016 at 21:00 Admitting Diagnosis severe sepsis HPI Garret Barrios is a 70 year old male who was admitted on Aug 05, 2016 at 14:10 for Severe Sepsis Hospital Course [id number] Discharge Discharge Disposition Patient was discharged to SNF/Subacute Facility(03) Discharge Diagnoses: Mine Elder NP Aug 12, 2016 16:59
--- NOTE | 2016-08-13 03:28 | Discharge Summary 2 SIG ---
DATE OF ADMISSION: 08/05/2016 DATE OF DISCHARGE: 08/11/2016 CONSULTANTS: 1. Manjit Gibbs M.D. 2. Edelmira James M.D. 3. Beau Guzmán M.D. BRIEF HOSPITAL COURSE: The patient is a 70-year-old male with apparent dementia was brought in by paramedics for altered level of consciousness after he was found laying in the street. He was hypotensive in the field and was given IV fluids. On evaluation at ED, he had elevated lactic acid consistent with severe sepsis. CT of the head showed no acute process. Chest x-ray showed no acute cardiopulmonary disease. Dr. Guzmán was consulted. Hypotension was secondary to dehydration and sepsis. CK was more than 2600 with findings of azotemia. He was given IV hydration and was admitted to [facility]. Dr. James was consulted and was started on cefepime and clindamycin empirically. Blood cultures did not isolate any growth. Antibiotics were discontinued. Electrolytes improved. The patient was transferred to medical floor. Social service was called in to aid in the patient's placement. The patient was eventually discharged to [facility]. FINAL DIAGNOSES: 1. Acute toxic metabolic encephalopathy secondary to sepsis. 2. Rhabdomyolysis. 3. Acute kidney injury. 4. Dementia. 5. Dehydration. 6. Hypotension secondary to dehydration and sepsis. 7. 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 8. Hypokalemia. Nba Estrada M.D. I have been assigned to dictate discharge summary on this account and I was not involved in the patient's management. Mine Elder N.P. DR: Marilee JOB#: [id number] CC: PAUL
--- NOTE | 2016-08-24 11:25 | Diagnostic Imaging Report ---
Indications: Pain Technique: Spiral acquisitions obtained through the brain. Angled axial and coronal 5 x 5 mm slices were reconstructed. Total dose length product 1312 mGycm. CTDI vol(s) 7 mGy Comparison: None Findings: There is marked age-related enlargement of ventricles and extra-axial CSF spaces. There is extensive periventricular deep white matter chronic ischemic change. No acute hemorrhage or edema. No mass effect or midline shift. Intact calvarium. Visualized orbits are unremarkable. There is a chronic medial right orbital wall defect. Sinuses are clear. The mastoids are clear. There is an old lacunar infarct in the left inferior basal ganglia region. There is an old lacunar infarct in the right inferior basal ganglia region and one in the right thalamus as well. Impression: Chronic and age-related changes, as described, including multiple old basal ganglia lacunar infarcts. Negative for acute intracranial bleed or mass effect. The CT scanner at [facility] is accredited by the [employer] and the scans are performed using protocols designed to limit radiation exposure to as low as reasonably achievable to attain images of sufficient resolution adequate for diagnostic evaluation.
== END 2016-08-11 21:00 | DRG 871 ==
LOC: ENRESERVTM → ENRESERVDT → EDBD 12:35 → EMR 13:30 → 2W 14:10 → EDBEDREQ 16:17 → 2E 08-07 23:15 → 4W 08-09 22:07
DX: A41.9 Sepsis, unspecified organism (principal); G93.40 Encephalopathy, unspecified; N17.9 Acute kidney failure, unspecified; G92 Toxic encephalopathy; M62.82 Rhabdomyolysis; I45.3 Trifascicular block; J98.11 Atelectasis; E86.0 Dehydration; R65.20 Severe sepsis without septic shock; F03.90 Unspecified dementia, unspecified severity, without behavioral disturbance, psychotic disturbance, mood disturbance, and anxiety; E87.6 Hypokalemia; Z59.0 Homelessness
CPT/HCPCS: 36415; 36600; 70450; 71010; 80048; 80053; 81003; 82550; 82553; 82803; 83605; 83690; 83880; 84439; 84443; 84484; 85025; 85610; 85730; 86140; 87040; 87081; 93005; 93306; 94664; J8499; S0077

== ENCOUNTER → 2020-01-28 | Emergency (ER) | payer MEDICARE, OTHER ==
[~2020-01-28] VITALS: Ht 175.3 cm; Wt 77.1 kg
[~2020-01-28] MED LIST: AMIODARONE HCL400 M1 ORAL; AMLODIPINE BESYL5 MG ORAL; ARICEPT5 MG ORAL; LISINOPRIL5 MG ORAL; METOPROLOL TART25 MG ORAL; NKM; Neosporin Oint Ud Pkt TOPIC ONE; POTASSIUM99 M3 PO; VITAMIN D400 INTLU ORAL
--- NOTE | 2020-01-28 03:39 | NUR ---
ED Nurse Note: Patient brought in by ambulance [facility] from [facility] with c/o laceration on right eye s/p fall around 1730. Per EMS patient was ambulating and had an unwitnessed fall. Patient came with simple dressing on right side of the eye. EMS states patient denies LOC. Patient is AAOX0 but awake and alert. Placed on monitor bed
[2020-01-28 03:45] VITALS: BP 128/73
--- NOTE | 2020-01-28 03:45 | NUR ---
ED Nurse Note: ERMD at bedside
--- NOTE | 2020-01-28 03:46 | Emergency Room Report ---
History of Present Illness General Chief Complaint: Multiple Trauma/Fall Source: Medical Record, EMS Present Illness HPI This is a 77-year-old -[place] male coming from [facility]. He has a history of dementia and high blood pressure. He presents with chief complaint of fall with head injury and laceration. Not witnessed. Nursing staff heard a noise and found on the floor. No other injury. Unable to get any other history from this patient because of his dementia. Allergies: Coded Allergies: No Known Allergies (Unverified , 08/05/16) COVID-19 Screening Contact w/high risk pt: No Experienced COVID-19 symptoms?: No COVID-19 Testing performed MECHANICAL METER TESTER: No Patient History Past Medical History: see triage record, old chart reviewed, HTN, dementia Past Surgical History: other Pertinent Family History: none Social History: Denies: smoking Immunizations: UTD Reviewed Nursing Documentation: PMH: Agreed; PSxH: Agreed Nursing Documentation-PMH Hx Hypertension: Yes Hx Alzheimer's Disease: Yes Review of Systems All Other Systems: limited - Secondary to dementia Physical Exam Vital Signs Date Time Temp Pulse Resp B/P (MAP) Pulse Ox O2 Delivery O2 Flow Rate FiO2 01/28/20 03:34 97.5 51 16 128/73 (91) 96 Room Air Vitals normal Sp02 EP Interpretation: reviewed, normal General Appearance: well appearing, no apparent distress, alert Head: normocephalic, other - 2 cm laceration over the right eyebrow. No foreign body. Eyes: bilateral eye PERRL, bilateral eye EOMI ENT: hearing grossly normal, normal pharynx Neck: full range of motion, supple, no meningismus Respiratory: chest non-tender, lungs clear, normal breath sounds Cardiovascular #1: regular rate, rhythm, no murmur Gastrointestinal: normal bowel sounds, non tender, no mass, no organomegaly, no bruit, non-distended Musculoskeletal: back normal, normal range of motion Neurologic: grossly normal Psychiatric: other Procedures Laceration/Wound Repair Laceration/Wound Repair : Consent: Verbal Wound Location: face Wound's Depth, Shape: into muscle, linear Wound Length (cm): 2 Wound Explored: clean Irrigated w/ Saline (ccs): 500 Anesthesia: 1% Lidocaine Volume Anesthetic (ccs): 3 Wound Repaired With: sutures Suture Size/Type: 4:0, other - chromic Number of Sutures: 3 Patient Tolerated: Well Complications: None Medical Decision Making Diagnostic Impression: Primary Impression: Head injury, acute Qualified Codes: S09.90XA - Unspecified injury of head, initial encounter Additional Impression: Laceration of eyebrow, right Qualified Codes: S01.111A - Laceration without foreign body of right eyelid and periocular area, initial encounter ER Course Presents with a head injury and laceration. No evidence of any intracranial bleed or skull fracture. Will discharge home. CT/MRI/US Diagnostic Results CT/MRI/US Diagnostic Results : Imaging Test Ordered: CT head Impression Read by radiologist. Negative. Last Vital Signs Date Time Temp Pulse Resp B/P (MAP) Pulse Ox O2 Delivery O2 Flow Rate FiO2 01/28/20 03:34 97.5 51 16 128/73 (91) 96 Room Air Status: improved Disposition: SNF Condition: Stable Additional Instructions: Fall precaution. Follow-up with your doctor in 7 days. Return if worse. Jacinto Glez MD Jan 28, 2020 03:46
--- NOTE | 2020-01-28 03:50 | NUR ---
ED Nurse Note: Bedside suturing done by GISEL
--- NOTE | 2020-01-28 04:00 | NUR ---
ED Nurse Note: Pt to CT per bed with RN
--- NOTE | 2020-01-28 04:15 | NUR ---
ED Nurse Note: Pt back from CT scan
--- NOTE | 2020-01-28 04:28 | NUR ---
ED Nurse Note: Topical antiobiotic and simple dressing applied to sutured area
--- NOTE | 2020-01-28 04:39 | Diagnostic Imaging Report ---
EXAM: CT Head Without Intravenous Contrast CLINICAL HISTORY: TRAUMA TECHNIQUE: Axial computed tomography images of the head/brain without intravenous contrast. CTDI is 42.90 mGy and DLP is 1011.60 mGy-cm. One or more of the following dose reduction techniques were used: automated exposure control, adjustment of the mA and/or kV according to patient size, use of iterative reconstruction technique. COMPARISON: No relevant prior studies available. FINDINGS: Brain: There is moderate low-density in the periventricular white matter consistent with chronic microvascular ischemic change. No acute infarcts identified. No hemorrhage. Ventricles: Unremarkable. No ventriculomegaly. Bones/joints: Unremarkable. No acute fracture. Soft tissues: There is a small right frontal scalp hematoma. Sinuses: Unremarkable as visualized. No acute sinusitis. Mastoid air cells: Unremarkable as visualized. No mastoid effusion. IMPRESSION: No acute findings in the head/brain.
--- NOTE | 2020-01-28 07:10 | NUR ---
HAND-OFF: Report given to HORTENCIA Rios
[2020-01-28 08:15] VITALS: BP 135/79
--- NOTE | 2020-01-28 08:15 | NUR ---
ED Nurse Note: Pt transferred to [facility] and stable Transported by [facility].
== END | disposition short-term general hospital (02) ==
LOC: EDUNIT# 03:31 → EDBD 03:32 → EMR 03:48
DX: S09.90XA Unspecified injury of head, initial encounter (principal); S01.111A Laceration without foreign body of right eyelid and periocular area, initial encounter; I10 Essential (primary) hypertension; G30.9 Alzheimer's disease, unspecified; F02.80 Dementia in other diseases classified elsewhere, unspecified severity, without behavioral disturbance, psychotic disturbance, mood disturbance, and anxiety; W19.XXXA Unspecified fall, initial encounter; Y92.129 Unspecified place in nursing home as the place of occurrence of the external cause
CPT/HCPCS: 70450; 99284